=== PATIENT | female | born 1990 | race Caucasian/White ===

== ENCOUNTER 2016-07-20 16:52 | Emergency (ER) | payer OTHER ==
[2016-07-20] MEDS ORDERED: SODIUM CHLORIDE 0.9% 1,000 ML IV STA (17:00)
[2016-07-20] MEDS ORDERED: KETOROLAC 30 MG/ML 1 ML VIAL IVP STA (17:16)
[2016-07-20 17:18] LABS: Basophils # (A) 0.1 k/uL (0-0.2); Basophils % (A) 1 %; CH 30.7; CHCM 33.4; Eosinophils # (A) 0.3 k/uL (0-0.7); Eosinophils % (A) 4 %; HCT 43.3 % (34.0-46.0); HDW 2.24; Luc # (Auto) 0.13; Luc % (Auto) 2; Lymphocytes # (A) 2.3 k/uL (1.0-4.8); Lymphocytes % (A) 30 %; MCH 29.8 pg (25.0-35.0); MCHC 32.3 g/dL (31.0-37.0); MCV 92.2 fL (80.0-100.0); Mean Platelet Volume 8.2; Monocytes # (A) 0.4 k/uL (0-1.0); Monocytes % (A) 5 %; Neutrophils # (A) 4.5 k/uL (1.3-7.7); Neutrophils % (A) 59 %; RBC 4.69 m/uL (3.80-5.40); RDW 12.8 % (11.5-15.5); WBC 7.7 k/uL (3.8-10.6); WBC (Perox) 7.64
[2016-07-20 17:19] LABS: Appearance,Urine Clear (Clear); Bilirubin,Urine Negative (Negative); Glucose,Urine (UA) Negative (Negative); Ketones,Urine Negative (Negative); Leukocyte Esterase,Urine Negative (Negative); Nitrite,Urine Negative (Negative); PH, Urine 6.5 (5.0-8.0); Protein,Urine Negative (Negative); Specific Gravity,Urine 1.001 (1.001-1.035); UA Billing (MACRO vs. MICRO) CHEM; Urobilinogen,Urine <2.0 mg/dL (<2.0)
[2016-07-20 17:36] LABS: ALT 26 U/L (9-52); AST 16 U/L (14-36); Alkaline Phosphatase 84 U/L (38-126); Amylase 54 U/L (30-110); Anion Gap 12 mmol/L; Blood Urea Nitrogen 8 mg/dL (7-17); Calcium 9.6 mg/dL (8.4-10.2); Carbon Dioxide 29 mmol/L (22-30); Chloride 101 mmol/L (98-107); Glucose 98 mg/dL (74-99); Non-African American GFR(MDRD) >60 (>60 ml/min/1.73 sqM); Sodium 142 mmol/L (137-145); Total Bilirubin 0.3 mg/dL (0.2-1.3); Total Protein 7.2 g/dL (6.3-8.2)
--- NOTE | 2016-07-20 17:44 | ED ---
Abdominal Pain HPI - General Chief Complaint: Abdominal Pain Stated Complaint: Lower Abd/Back Pain Time Seen by Provider: 07/20/16 16:59 Source: patient, RN notes reviewed Mode of arrival: ambulatory Limitations: no limitations - History of Present Illness Initial Comments: 26-year-old female presents emergency Department chief complaint left flank pain. Patient states that started last night worse today. Patient states that she has a history of kidney stones in [place] (. She states it feels like an ovarian cysts in which she's had in the past. Denies any vaginal bleeding or vaginal discharge. Patient states she's had a prior appendectomy, section and tubal ligation. Patient states she did have one episode of vomiting. Denies any nausea at this time. Patient denies any cuts patient diarrhea. Patient denies fever, chills, dysuria, hematuria. She states that movement makes his symptoms feel worse. - Related Data Home Medications Medication Instructions Recorded Confirmed Hydrocodone/Acetaminophen [[place] 1 tab PO TID 07/20/16 07/20/16 5-325] Allergies Allergy/AdvReac Type Severity Reaction Status Date / Time aspirin Allergy Anaphylaxis Verified 07/20/16 17:28 Penicillins Allergy Anaphylaxis Verified 07/20/16 17:28 Review of Systems ROS Statement: Those systems with pertinent positive or pertinent negative responses have been documented in the HPI. ROS Other: All systems not noted in ROS Statement are negative. Past Medical History Past Medical History: Asthma, Thyroid Disorder Additional Past Medical History / Comment(s): back pain; Ovarian Cyst; Endometriosis History of Any Multi-Drug Resistant Organisms: None Reported Past Surgical History: Appendectomy, Section, Tubal Ligation Additional Past Surgical History / Comment(s): thyroid Past Anesthesia/Blood Transfusion Reactions: Family History of Problems w/ Anesthesia, Motion Sickness Additional Past Anesthesia/Blood Transfusion Reaction / Comment(s): mother hx of ponv, and agitation with anesthesia Past Psychological History: Depression Smoking Status: Current every day smoker Past Alcohol Use History: None Reported Past Drug Use History: None Reported - Past Family History Mother Family Medical History: No Reported History General Exam Limitations: no limitations General appearance: alert, in no apparent distress Head exam: Present: atraumatic, normocephalic, normal inspection Respiratory exam: Present: normal lung sounds bilaterally. Absent: respiratory distress, wheezes, rales, rhonchi, stridor Cardiovascular Exam: Present: regular rate, normal rhythm, normal heart sounds. Absent: systolic murmur, diastolic murmur, rubs, gallop, clicks GI/Abdominal exam: Present: soft, tenderness (Mild amount of lower quadrant tenderness), normal bowel sounds. Absent: distended, guarding, rebound, rigid Back exam: Absent: CVA tenderness (R), CVA tenderness (L) Neurological exam: Present: alert, oriented X3, CN II-XII intact Skin exam: Present: warm, dry, intact, normal color. Absent: rash Course Vital Signs 07/20/16 16:54 Temperature 98.0 F Pulse Rate 92 Respiratory 18 Rate Blood Pressure 127/79 O2 Sat by Pulse 100 Oximetry Medical Decision Making - Medical Decision Making 26-year-old female presented for left flank pain.There is no acute abnormality on CT. Discuss maybe there is a small ovarian cyst or related to bowel spasms. Patient will be discharged at this time. Patient agrees this plan. - Lab Data Result diagrams: 07/20/16 17:05 07/20/16 17:05 Lab Results 07/20/16 07/20/16 07/20/16 Range/Units 17:05 17:05 17:05 WBC 7.7 (3.8-10.6) k/uL RBC 4.69 (3.80-5.40) m/uL Hgb 14.0 (11.4-16.0) gm/dL Hct 43.3 (34.0-46.0) % MCV 92.2 (80.0-100.0) fL MCH 29.8 (25.0-35.0) pg MCHC 32.3 (31.0-37.0) g/dL RDW 12.8 (11.5-15.5) % Plt Count 225 (150-450) k/uL Neutrophils % 59 % Lymphocytes % 30 % Monocytes % 5 % Eosinophils % 4 % Basophils % 1 % Neutrophils # 4.5 (1.3-7.7) k/uL Lymphocytes # 2.3 (1.0-4.8) k/uL Monocytes # 0.4 (0-1.0) k/uL Eosinophils # 0.3 (0-0.7) k/uL Basophils # 0.1 (0-0.2) k/uL Sodium 142 (137-145) mmol/L Potassium 4.0 (3.5-5.1) mmol/L Chloride 101 (98-107) mmol/L Carbon Dioxide 29 (22-30) mmol/L Anion Gap 12 mmol/L BUN 8 (7-17) mg/dL Creatinine 0.85 (0.52-1.04) mg/dL Est GFR (MDRD) Af Amer >60 (>60 ml/min/1.73 sqM) Est GFR (MDRD) Non-Af >60 (>60 ml/min/1.73 sqM) Glucose 98 (74-99) mg/dL Calcium 9.6 (8.4-10.2) mg/dL Total Bilirubin 0.3 (0.2-1.3) mg/dL AST 16 (14-36) U/L ALT 26 (9-52) U/L Alkaline Phosphatase 84 (38-126) U/L Total Protein 7.2 (6.3-8.2) g/dL Albumin 4.5 (3.5-5.0) g/dL Amylase 54 (30-110) U/L Lipase 45 (23-300) U/L Urine Color Urine Appearance (Clear) Urine pH (5.0-8.0) Ur Specific [place] (1.001-1.035) Urine Protein (Negative) Urine Glucose (UA) (Negative) Urine Ketones (Negative) Urine Blood (Negative) Urine Nitrate (Negative) Urine Bilirubin (Negative) Urine Urobilinogen (<2.0) mg/dL Ur Leukocyte Esterase (Negative) Urine HCG, Qual Not Detected (Not Detectd) 07/20/16 Range/Units 17:05 WBC (3.8-10.6) k/uL RBC (3.80-5.40) m/uL Hgb (11.4-16.0) gm/dL Hct (34.0-46.0) % MCV (80.0-100.0) fL MCH (25.0-35.0) pg MCHC (31.0-37.0) g/dL RDW (11.5-15.5) % Plt Count (150-450) k/uL Neutrophils % % Lymphocytes % % Monocytes % % Eosinophils % % Basophils % % Neutrophils # (1.3-7.7) k/uL Lymphocytes # (1.0-4.8) k/uL Monocytes # (0-1.0) k/uL Eosinophils # (0-0.7) k/uL Basophils # (0-0.2) k/uL Sodium (137-145) mmol/L Potassium (3.5-5.1) mmol/L Chloride (98-107) mmol/L Carbon Dioxide (22-30) mmol/L Anion Gap mmol/L BUN (7-17) mg/dL Creatinine (0.52-1.04) mg/dL Est GFR (MDRD) Af Amer (>60 ml/min/1.73 sqM) Est GFR (MDRD) Non-Af (>60 ml/min/1.73 sqM) Glucose (74-99) mg/dL Calcium (8.4-10.2) mg/dL Total Bilirubin (0.2-1.3) mg/dL AST (14-36) U/L ALT (9-52) U/L Alkaline Phosphatase (38-126) U/L Total Protein (6.3-8.2) g/dL Albumin (3.5-5.0) g/dL Amylase (30-110) U/L Lipase (23-300) U/L Urine Color Colorless Urine Appearance Clear (Clear) Urine pH 6.5 (5.0-8.0) Ur Specific [place] 1.001 (1.001-1.035) Urine Protein Negative (Negative) Urine Glucose (UA) Negative (Negative) Urine Ketones Negative (Negative) Urine Blood Negative (Negative) Urine Nitrate Negative (Negative) Urine Bilirubin Negative (Negative) Urine Urobilinogen <2.0 (<2.0) mg/dL Ur Leukocyte Esterase Negative (Negative) Urine HCG, Qual (Not Detectd) Disposition Clinical Impression: Abdominal pain Disposition: HOME SELF-CARE Condition: Stable Instructions: Abdominal Pain (ED) Additional Instructions: Please return to the ER if worse or any other concerns Time of Disposition: 18:45
--- NOTE | 2016-07-20 17:55 | XR ---
EXAMINATION TYPE: XR KUB DATE OF EXAM: 07/20/2016 5:49 PM COMPARISON: October 05, 2011 HISTORY: Left lower quadrant pain TECHNIQUE: 2 views FINDINGS: There is a 2 mm calcification centrally within the left pelvis. There is no bowel obstruction, although excessive colonic stool is noted. No pneumoperitoneum or pneu matosis. No evident mass. The lung bases and pleural spaces are negative. IMPRESSION: No definite acute process. However, 2 mm left pelvic calcification noted.
--- NOTE | 2016-07-20 18:34 | CT ---
EXAMINATION TYPE: CT abdomen pelvis wo con DATE OF EXAM: 07/20/2016 6:21 PM COMPARISON: NONE HISTORY: Left Lower Quadrant and Left flank pain CT DLP: 258.9 mGycm Automated exposure control for dose reduction was used. TECHNIQUE: Helical acquisition of images was performed from the lung bases through the pelvis. FINDINGS: LUNG BASES: No significant abnormality is appreciated. LIVER/GB: No significant abnormality is appreciated. PANCREAS: No significant abnormality is seen. SPLEEN: There are no acute findings, but the spleen is minimally enlarged in its volume, measuring 59 0 cc splenic index. There are a few scattered tiny splenic calcifications, consistent with healed gra nulomatous process. ADRENALS: No significant abnormality is seen. KIDNEYS: No significant abnormality is seen. RETROPERITONEAL ADENOPATHY: None visualized REPRODUCTIVE ORGANS: No significant abnormality is seen URINARY BLADDER: No significant abnormality is seen. PELVIC ADENOPATHY: None visualized. OSSEOUS STRUCTURES: No significant abnormality is seen. BOWEL: No significant abnormality is seen. OTHER: Noncontrast CT limits sensitivity for focal visceral lesions and intravascular pathology. IMPRESSION: 1. NO DEFINITE ACUTE PROCESS. 2. HOWEVER, THERE IS MINIMAL SPLENOMEGALY NOTED - A NONSPECIFIC FINDING WHICH CAN CORRELATE WITH A CL INICAL DIAGNOSIS OF MONONUCLEOSIS.
[2016-07-20] MEDS ORDERED: MORPHINE SULFATE 4 MG/ML SYRINGE IVP STA (18:45)
[2016-07-20] MEDS ORDERED: ONDANSETRON 4 MG/2 ML VIAL IVP STA (18:45)
[2016-07-20] MEDS ORDERED: MORPHINE SULFATE 2 MG/ML SYRINGE IVP ONE (18:53)
[2016-07-20 19:02] VITALS: BP 115/57; PULSE 67; RESP 18; TEMP 97.8
== END 2016-07-20 19:02 | disposition home or self-care (01) ==
LOC: EC 16:52
DX: R10.9 Unspecified abdominal pain (principal); F17.200 Nicotine dependence, unspecified, uncomplicated; Z88.0 Allergy status to penicillin; Z88.6 Allergy status to analgesic agent; Z87.442 Personal history of urinary calculi
CPT/HCPCS: 36415; 80053; 82150; 83690; 85025; 81003; 81025; 74000; 74176; 99284; 96374; 96375 ×2; 96376; 96361; J2405; J1885; J2270

== ENCOUNTER 2016-10-15 22:37 | Emergency (ER) | payer OTHER ==
[2016-10-15 22:56] VITALS: RESP 16
[2016-10-16] MEDS ORDERED: IBUPROFEN 800 MG TAB PO STA (00:19)
[2016-10-16 01:13] LABS: Basophils # (A) 0.1 k/uL (0-0.2); Basophils % (A) 1 %; CHCM 33.6; Eosinophils # (A) 0.2 k/uL (0-0.7); Eosinophils % (A) 3 %; HCT 40.7 % (34.0-46.0); HGB 13.4 gm/dL (11.4-16.0); Luc # (Auto) 0.14; Luc % (Auto) 2; Lymphocytes # (A) 2.3 k/uL (1.0-4.8); Lymphocytes % (A) 32 %; MCH 30.5 pg (25.0-35.0); MCV 92.6 fL (80.0-100.0); Monocytes # (A) 0.4 k/uL (0-1.0); Monocytes % (A) 6 %; Neutrophils # (A) 4.1 k/uL (1.3-7.7); Neutrophils % (A) 56 %; RBC 4.39 m/uL (3.80-5.40); RDW 13.2 % (11.5-15.5); WBC 7.3 k/uL (3.8-10.6); WBC (Perox) 7.49
[2016-10-16 01:22] LABS: INR 1.1 (<1.1); Partial Thromboplastin Time 25.9 sec (22.0-30.0); Prothrombin Time 10.8 sec (9.0-12.0)
[2016-10-16 01:26] LABS: ALT 26 U/L (9-52); AST 16 U/L (14-36); Alkaline Phosphatase 60 U/L (38-126); Anion Gap 9 mmol/L; Blood Urea Nitrogen 13 mg/dL (7-17); Calcium 9.5 mg/dL (8.4-10.2); Carbon Dioxide 25 mmol/L (22-30); Chloride 107 mmol/L (98-107); Glucose 83 mg/dL (74-99); Non-African American GFR(MDRD) >60 (>60 ml/min/1.73 sqM); Potassium 3.9 mmol/L (3.5-5.1); Sodium 141 mmol/L (137-145); Total Bilirubin 0.3 mg/dL (0.2-1.3); Total Protein 6.5 g/dL (6.3-8.2)
[2016-10-16 01:36] LABS: Appearance,Urine Cloudy (Clear); Bilirubin,Urine Negative (Negative); Glucose,Urine (UA) Negative (Negative); Ketones,Urine Negative (Negative); Leukocyte Esterase,Urine Negative (Negative); Mucus,Urine Many /hpf; Nitrite,Urine Negative (Negative); Particle Count 14927; Protein,Urine 1+ (Negative); Specific Gravity,Urine 1.026 (1.001-1.035); Squamous Epithelial Cell,Urine 4 /hpf (0-4); UA Billing (MACRO vs. MICRO) MICRO
--- NOTE | 2016-10-16 01:42 | ED ---
General Adult HPI - General Chief complaint: Extremity Problem,Nontraumatic Stated complaint: Shoulder pain Time Seen by Provider: 10/15/16 23:55 Source: patient, RN notes reviewed Mode of arrival: ambulatory Limitations: no limitations - History of Present Illness Initial comments: Patient is a 26-year-old female presents emergency room for evaluation chest pain. Patient states that 6 weeks ago she began developing midsternal pain that radiates to her neck and posterior left shoulder. Patient states that she went to [facility]. Patient states they did an EKG and told her that she was having chest wall pain. Patient states over the course of 6 weeks pain has not improved. Patient states she takes Ridott as needed for chronic back pain and the Ridott has not been helping her chest pain. Patient states pain is worse with movement. 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 Patient states that the pain got worse after lifting her children and doing her work. Patient denies numbness or tingling going down her extremities. Patient states the pain is worse when she presses over her chest. Patient denies shortness of breath. Patient denies headache or dizziness. Patient denies cough. Patient denies fevers or chills. Patient denies abdominal pain. Patient denies nausea or vomiting. - Related Data Home Medications Medication Instructions Recorded Confirmed Hydrocodone/Acetaminophen [Ridott 1 tab PO TID 07/20/16 07/20/16 5-325] Previous Rx's Medication Instructions Recorded Orphenadrine [Norflex] 100 mg PO Q12H PRN #12 tablet.er 10/16/16 Allergies Allergy/AdvReac Type Severity Reaction Status Date / Time aspirin Allergy Anaphylaxis Verified 10/15/16 22:56 Penicillins Allergy Anaphylaxis Verified 10/15/16 22:56 Review of Systems ROS Statement: Those systems with pertinent positive or pertinent negative responses have been documented in the HPI. ROS Other: All systems not noted in ROS Statement are negative. Past Medical History Past Medical History: Asthma, Thyroid Disorder Additional Past Medical History / Comment(s): back pain; Ovarian Cyst; Endometriosis History of Any Multi-Drug Resistant Organisms: None Reported Past Surgical History: Appendectomy, Section, Tubal Ligation Additional Past Surgical History / Comment(s): thyroid Past Anesthesia/Blood Transfusion Reactions: Family History of Problems w/ Anesthesia, Motion Sickness Additional Past Anesthesia/Blood Transfusion Reaction / Comment(s): mother hx of ponv, and agitation with anesthesia Past Psychological History: Depression Smoking Status: Current every day smoker Past Alcohol Use History: Occasional Past Drug Use History: None Reported - Past Family History Mother Family Medical History: No Reported History General Exam - General Exam Comments Initial Comments: Sitting in exam room, no acute distress. Limitations: no limitations General appearance: alert, in no apparent distress Head exam: Present: atraumatic, normocephalic, normal inspection Eye exam: Present: normal appearance ENT exam: Present: normal exam Neck exam: Present: normal inspection Respiratory exam: Present: normal lung sounds bilaterally, chest wall tenderness (Pain on palpating over midsternal area and left anterior chest wall) . Absent: respiratory distress Cardiovascular Exam: Present: regular rate, normal rhythm, normal heart sounds Extremities exam: Present: normal inspection Left Shoulder Exam: Present: normal inspection, tenderness (Pain on palpating over posterior shoulder joint/scapula). Absent: full ROM (limited extension secondary to pain) Neuro motor exam: Present: wrist extension intact, thumb opposition intact, thumb IP flexion intact, thumb adduction intact, fingers 2-5 abduction intact Vascular: Present: normal capillary refill (Capillary refill less than 2 seconds ), radial pulse (2+), ulnar pulse (2+) Back exam: Present: normal inspection Neurological exam: Present: alert, oriented X3, CN II-XII intact, normal gait Psychiatric exam: Present: normal affect, normal mood Skin exam: Present: warm, dry, intact, normal color. Absent: rash Course Vital Signs 10/15/16 22:53 Temperature 98.4 F Pulse Rate 90 Respiratory 16 Rate Blood Pressure 131/78 O2 Sat by Pulse 98 Oximetry EKG Findings - EKG Comments: EKG Findings:: Sinus bradycardia, ventricular rate 59 bpm, WA interval 156 ms, QRS duration 84 ms, QT/QTC 398/394 ms Medical Decision Making - Medical Decision Making Patient is a 26-year-old female presents emergency room for evaluation of chest wall pain. EKG shows no concerning findings. Lab work including cardiac enzymes show no acute findings. Chest x-ray shows no signs for pneumonia, and pleural effusions or pneumothorax. Patient's symptoms reproducible on palpation. Patient's symptoms most likely related to costochondritis. Explained to patient to refrain from heavy lifting or strenuous activity for the next 7-10 days. Patient has Ridott as needed at home for pain. Will send patient home with Norflex and advised to follow-up with her primary care provider. Patient states she understands everything that was discussed with her. Return parameters discussed. Case discussed with Dr. Nieves. - Lab Data Result diagrams: 10/16/16 00:50 10/16/16 00:50 Lab Results 10/16/16 10/16/16 10/16/16 Range/Units 00:50 00:50 00:50 WBC 7.3 (3.8-10.6) k/uL RBC 4.39 (3.80-5.40) m/uL Hgb 13.4 (11.4-16.0) gm/dL Hct 40.7 (34.0-46.0) % MCV 92.6 (80.0-100.0) fL MCH 30.5 (25.0-35.0) pg MCHC 33.0 (31.0-37.0) g/dL RDW 13.2 (11.5-15.5) % Plt Count 170 (150-450) k/uL Neutrophils % 56 % Lymphocytes % 32 % Monocytes % 6 % Eosinophils % 3 % Basophils % 1 % Neutrophils # 4.1 (1.3-7.7) k/uL Lymphocytes # 2.3 (1.0-4.8) k/uL Monocytes # 0.4 (0-1.0) k/uL Eosinophils # 0.2 (0-0.7) k/uL Basophils # 0.1 (0-0.2) k/uL PT (9.0-12.0) sec INR (<1.1) APTT (22.0-30.0) sec D-Dimer (<0.60) mg/L FEU Sodium 141 (137-145) mmol/L Potassium 3.9 (3.5-5.1) mmol/L Chloride 107 (98-107) mmol/L Carbon Dioxide 25 (22-30) mmol/L Anion Gap 9 mmol/L BUN 13 (7-17) mg/dL Creatinine 0.80 (0.52-1.04) mg/dL Est GFR (MDRD) Af Amer >60 (>60 ml/min/1.73 sqM) Est GFR (MDRD) Non-Af >60 (>60 ml/min/1.73 sqM) Glucose 83 (74-99) mg/dL Calcium 9.5 (8.4-10.2) mg/dL Magnesium 2.0 (1.6-2.3) mg/dL Total Bilirubin 0.3 (0.2-1.3) mg/dL AST 16 (14-36) U/L ALT 26 (9-52) U/L Alkaline Phosphatase 60 (38-126) U/L Total Creatine Kinase 83 (30-135) U/L CK-MB (CK-2) 0.2 (0.0-2.4) ng/mL CK-MB (CK-2) Rel Index 0.2 Troponin I <0.012 (0.000-0.034) ng/mL Total Protein 6.5 (6.3-8.2) g/dL Albumin 4.0 (3.5-5.0) g/dL Urine Color Urine Appearance (Clear) Urine pH (5.0-8.0) Ur Specific [place] (1.001-1.035) Urine Protein (Negative) Urine Glucose (UA) (Negative) Urine Ketones (Negative) Urine Blood (Negative) Urine Nitrite (Negative) Urine Bilirubin (Negative) Urine Urobilinogen (<2.0) mg/dL Ur Leukocyte Esterase (Negative) Ur Squamous Epith Cells (0-4) /hpf Urine Mucus (None) /hpf Urine HCG, Qual (Not Detectd) 10/16/16 10/16/16 10/16/16 Range/Units 00:50 01:05 01:05 WBC (3.8-10.6) k/uL RBC (3.80-5.40) m/uL Hgb (11.4-16.0) gm/dL Hct (34.0-46.0) % MCV (80.0-100.0) fL MCH (25.0-35.0) pg MCHC (31.0-37.0) g/dL RDW (11.5-15.5) % Plt Count (150-450) k/uL Neutrophils % % Lymphocytes % % Monocytes % % Eosinophils % % Basophils % % Neutrophils # (1.3-7.7) k/uL Lymphocytes # (1.0-4.8) k/uL Monocytes # (0-1.0) k/uL Eosinophils # (0-0.7) k/uL Basophils # (0-0.2) k/uL PT 10.8 (9.0-12.0) sec INR 1.1 (<1.1) APTT 25.9 (22.0-30.0) sec D-Dimer <0.17 (<0.60) mg/L FEU Sodium (137-145) mmol/L Potassium (3.5-5.1) mmol/L Chloride (98-107) mmol/L Carbon Dioxide (22-30) mmol/L Anion Gap mmol/L BUN (7-17) mg/dL Creatinine (0.52-1.04) mg/dL Est GFR (MDRD) Af Amer (>60 ml/min/1.73 sqM) Est GFR (MDRD) Non-Af (>60 ml/min/1.73 sqM) Glucose (74-99) mg/dL Calcium (8.4-10.2) mg/dL Magnesium (1.6-2.3) mg/dL Total Bilirubin (0.2-1.3) mg/dL AST (14-36) U/L ALT (9-52) U/L Alkaline Phosphatase (38-126) U/L Total Creatine Kinase (30-135) U/L CK-MB (CK-2) (0.0-2.4) ng/mL CK-MB (CK-2) Rel Index Troponin I (0.000-0.034) ng/mL Total Protein (6.3-8.2) g/dL Albumin (3.5-5.0) g/dL Urine Color Yellow Urine Appearance Cloudy H (Clear) Urine pH 6.0 (5.0-8.0) Ur Specific [place] 1.026 (1.001-1.035) Urine Protein 1+ H (Negative) Urine Glucose (UA) Negative (Negative) Urine Ketones Negative (Negative) Urine Blood Negative (Negative) Urine Nitrite Negative (Negative) Urine Bilirubin Negative (Negative) Urine Urobilinogen 2.0 (<2.0) mg/dL Ur Leukocyte Esterase Negative (Negative) Ur Squamous Epith Cells 4 (0-4) /hpf Urine Mucus Many H (None) /hpf Urine HCG, Qual Not Detected (Not Detectd) - Radiology Data Radiology results: report reviewed, image reviewed Disposition Clinical Impression: Costochondritis Disposition: HOME SELF-CARE Condition: Good Instructions: Costochondritis (ED) Additional Instructions: Take ibuprofen as needed for pain. Take at home pain medications as needed for severe pain. Refrain from heavy lifting or strenuous physical activity for the next 7-10 days. Please follow-up with primary care provider in 24-48 hours for reevaluation. If any new symptom arises or symptoms worsen, return to ER as soon as possible. Prescriptions: Orphenadrine [Norflex] 100 mg PO Q12H PRN #12 tablet.er PRN Reason: Pain Referrals: Teresa Abbott MD [Primary Care Provider] - 1-2 days Time of Disposition: 02:41
--- NOTE | 2016-10-16 02:02 | XR ---
EXAM: XR Chest, 2 Views. CLINICAL HISTORY: chest/shoulder pain TECHNIQUE: Frontal and lateral views of the chest. COMPARISON: No relevant prior studies available. FINDINGS: Lungs: Unremarkable. No consolidation. Pleural space: Unremarkable. No pneumothorax. Heart: Unremarkable. No cardiomegaly. Mediastinum: Unremarkable. Bones/joints: Unremarkable. IMPRESSION: Normal chest x-rays.
[2016-10-16 02:22] LABS: Creatine Kinase 83 U/L (30-135)
[2016-10-16 02:35] LABS: Creatine Kinase MB 0.2 ng/mL (0.0-2.4); Troponin I <0.012 ng/mL (0.000-0.034)
[2016-10-16 03:16] VITALS: BP 114/58; PULSE 61; TEMP 97.8
== END 2016-10-16 03:00 | disposition home or self-care (01) ==
LOC: EC 22:37
DX: M94.0 Chondrocostal junction syndrome [Tietze] (principal); F17.200 Nicotine dependence, unspecified, uncomplicated; Z88.0 Allergy status to penicillin; Z88.6 Allergy status to analgesic agent; Z79.891 Long term (current) use of opiate analgesic
CPT/HCPCS: 36415; 71020; 80053; 81001; 81025; 82550; 82553; 83735; 84484; 85025; 85379; 85610; 85730; 93005; 99284

== ENCOUNTER 2017-08-14 11:07 | Emergency (ER) | payer OTHER ==
[2017-08-14] MEDS ORDERED: predniSONE 50 MG TAB PO STA (12:47)
[2017-08-14] MEDS ORDERED: IPRATROPIUM-ALBUTEROL 3 ML NEB INHALATION STA (12:50)
--- NOTE | 2017-08-14 12:50 | ED ---
General Adult HPI - General Chief complaint: Upper Respiratory Infection Stated complaint: Sob/chest pain Time Seen by Provider: 08/14/17 12:38 Source: patient, RN notes reviewed Mode of arrival: ambulatory Limitations: no limitations - History of Present Illness Initial comments: 27-year-old female history of asthma presents for evaluation of cough and left- sided chest pain. Patient was started on amoxicillin proximally one month ago for her cough. She was also given a dose of steroids. She completed this approximately 2 and half weeks ago. She has had persistent cough and left- sided chest pain. pain is sharp and worse with deep inspiration. Patient has had subjective fever and chills. She also complains of mild sore throat which began yesterday. Patient states her cough is nonproductive. Denies rhinorrhea. Denies abdominal pain or nausea vomiting. - Related Data Home Medications Medication Instructions Recorded Confirmed Albuterol Inhaler [Ventolin Hfa 2 puff INHALATION RT-Q6H PRN 06/15/17 08/14/17 Inhaler] Previous Rx's Medication Instructions Recorded guaiFENesin-Coden 100-10MG/5ML 10 ml PO Q6HR PRN #120 ml 08/14/17 [Robitussin AC] predniSONE 50 mg PO DAILY #5 tab 08/14/17 Allergies Allergy/AdvReac Type Severity Reaction Status Date / Time aspirin Allergy Anaphylaxis Verified 08/14/17 12:53 Penicillins Allergy Anaphylaxis Verified 08/14/17 12:53 Review of Systems ROS Statement: Those systems with pertinent positive or pertinent negative responses have been documented in the HPI. ROS Other: All systems not noted in ROS Statement are negative. Past Medical History Past Medical History: Asthma, Thyroid Disorder Additional Past Medical History / Comment(s): back pain; Ovarian Cyst; Endometriosis History of Any Multi-Drug Resistant Organisms: None Reported Past Surgical History: Appendectomy, Section, Tubal Ligation Additional Past Surgical History / Comment(s): thyroid Past Anesthesia/Blood Transfusion Reactions: Family History of Problems w/ Anesthesia, Motion Sickness Additional Past Anesthesia/Blood Transfusion Reaction / Comment(s): mother hx of ponv, and agitation with anesthesia Past Psychological History: Depression Smoking Status: Current every day smoker Past Alcohol Use History: Occasional Past Drug Use History: None Reported - Past Family History Mother Family Medical History: No Reported History General Exam Limitations: no limitations General appearance: alert, in no apparent distress Head exam: Present: atraumatic, normocephalic Eye exam: Present: normal appearance, PERRL, EOMI ENT exam: Absent: normal oropharynx (mild pharyngeal erythema) Neck exam: Present: normal inspection. Absent: tenderness, meningismus Respiratory exam: Present: rhonchi (rhonchi and crackles left lung base). Absent: respiratory distress, wheezes Cardiovascular Exam: Present: regular rate, normal rhythm GI/Abdominal exam: Present: soft. Absent: distended, tenderness Extremities exam: Present: normal inspection, normal capillary refill. Absent: pedal edema, calf tenderness Neurological exam: Present: alert, oriented X3, CN II-XII intact. Absent: motor sensory deficit Psychiatric exam: Present: normal affect, normal mood Skin exam: Present: warm, dry, intact Course Vital Signs 08/14/17 08/14/17 08/14/17 11:23 12:45 13:05 Temperature 98.6 F Pulse Rate 81 80 Respiratory 18 20 Rate Blood Pressure 117/71 O2 Sat by Pulse 100 Oximetry 08/14/17 13:13 Temperature Pulse Rate 84 Respiratory Rate Blood Pressure O2 Sat by Pulse Oximetry Medical Decision Making - Medical Decision Making 27-year-old female presenting with 4 weeks of cough. Patient does have history of asthma and is a current smoker.lungs are clear with good air entry, no respiratory distress. Patient does have some crackles at the left lung base. Cough is bronchospastic. She is instructed to start using her albuterol every 6 hours. She will be prescribed a short course of steroids. She will be prescribed Robitussin-AC for symptomatically relief. patient denies lower leg swelling or tenderness. She is not on control. No recent travel. PERC 0 Disposition Clinical Impression: Asthmatic bronchitis Disposition: HOME SELF-CARE Condition: Good Instructions: Upper Respiratory Infection (ED) Prescriptions: guaiFENesin-Coden 100-10MG/5ML [Robitussin AC] 10 ml PO Q6HR PRN #120 ml PRN Reason: Cough predniSONE 50 mg PO DAILY #5 tab Referrals: Teresa Abbott MD [Primary Care Provider] - 1-2 days Time of Disposition: 13:37
--- NOTE | 2017-08-14 13:11 | XR ---
EXAMINATION TYPE: XR chest 2V DATE OF EXAM: 08/14/2017 COMPARISON: 10/16/2016 TECHNIQUE: PA and lateral views submitted. HISTORY: Pain FINDINGS: The lungs are clear and there is no pneumothorax, pleural effusion, or focal pneumonia. IMPRESSION: 1. No acute process.
[2017-08-14 13:58] VITALS: BP 128/80; PULSE 81; RESP 16; TEMP 98.7
== END 2017-08-14 13:57 | disposition home or self-care (01) ==
LOC: EC 11:07
DX: J45.909 Unspecified asthma, uncomplicated (principal); F17.200 Nicotine dependence, unspecified, uncomplicated; Z88.0 Allergy status to penicillin; Z88.6 Allergy status to analgesic agent
CPT/HCPCS: 99283; 94640; 71046; J7512

== ENCOUNTER → 2018-02-01 | Outpatient (CLI) | payer BC, OTHER ==
--- NOTE | 2018-02-01 12:01 | EST ---
EXERCISE STRESS AGE: 28 SEX: F HT: 5'5" WT: 135 PROTOCOL: Stress Test STAGE: III DURATION OF EXERCISE: 9:53 HEART RATE REST: 60 BLOOD PRESSURE REST: 107/70 MAXIMUM HEART RATE ACHIEVED: 166 MAXIMUM BLOOD PRESSURE: 142/75 85% MPHR: 162 100% MPHR: 191 METS: 11.5 INDICATIONS: Dizziness. CLINICAL INFORMATION: Baseline EKG shows sinus rhythm, normal axis, normal intervals. Patient exercised on Florian protocol for a total of 9 minutes and 53 seconds achieving 11 METS, 86% of predicted maximal heart rate without chest pain or diagnostic ST-segment depression. CONCLUSION: 1. Excellent exercise tolerance. 2. Negative stress test by EKG criteria. MMODL / IJN: [id number] /
== END | disposition home or self-care (01) ==
LOC: RADNMMAIN 10:36
PROVIDERS: ATTEND Family Medicine
DX: R42 Dizziness and giddiness (principal)
CPT/HCPCS: 93017

== ENCOUNTER 2018-03-06 17:21 | Emergency (ER) | payer BC, OTHER ==
[2018-03-06] MEDS ORDERED: METOCLOPRAMIDE 5 MG/ML 2 ML VIAL IVP STA (18:24)
[2018-03-06] MEDS ORDERED: SODIUM CHLORIDE 0.9% 500 ML IV STA (18:24)
[2018-03-06] MEDS ORDERED: MORPHINE SULFATE 2 MG/ML SYRINGE IVP STA (18:24)
--- NOTE | 2018-03-06 18:26 | ED ---
General Adult HPI - General Chief complaint: Abdominal Pain Stated complaint: abdominal pain Source: patient Mode of arrival: ambulatory Limitations: no limitations - History of Present Illness Initial comments: Dictation was produced using SLID dictation software. please excuse any grammatical, word or spelling errors. Chief Complaint: 28-year-old female with past medical history of thyroid disease presents with epigastric and right upper quadrant abdominal pain 3 days. History of Present Illness: Patient is a 28-year-old female presents with postprandial epigastric and right upper quadrant abdominal pain. Denies any constitutional symptoms. Patient has any symptoms like this in the past. She states that her symptoms started immediately after eating. Denies any bloody or bilious vomiting. Her emesis is described as vertiginous. Patient is unsure if she is . Denies any diarrhea symptoms. No urinary symptoms. The ROS documented in this emergency department record has been reviewed and confirmed by me. Those systems with pertinent positive or negative responses have been documented in the HPI. All other systems are other negative and/or noncontributory. - Related Data Home Medications Medication Instructions Recorded Confirmed Albuterol Inhaler [Ventolin Hfa 2 puff INHALATION RT-Q6H PRN 06/15/17 03/06/18 Inhaler] Previous Rx's Medication Instructions Recorded Famotidine [Pepcid] 40 mg PO BID #30 tab 03/06/18 Allergies Allergy/AdvReac Type Severity Reaction Status Date / Time aspirin Allergy Anaphylaxis Verified 03/06/18 17:45 Penicillins Allergy Anaphylaxis Verified 03/06/18 17:45 Review of Systems ROS Statement: Those systems with pertinent positive or pertinent negative responses have been documented in the HPI. ROS Other: All systems not noted in ROS Statement are negative. Past Medical History Past Medical History: Asthma, Thyroid Disorder Additional Past Medical History / Comment(s): back pain; Ovarian Cyst; Endometriosis History of Any Multi-Drug Resistant Organisms: None Reported Past Surgical History: Appendectomy, Section, Tubal Ligation Additional Past Surgical History / Comment(s): thyroid Past Anesthesia/Blood Transfusion Reactions: Family History of Problems w/ Anesthesia, Motion Sickness Additional Past Anesthesia/Blood Transfusion Reaction / Comment(s): mother hx of ponv, and agitation with anesthesia Past Psychological History: Depression Smoking Status: Current every day smoker Past Alcohol Use History: Occasional Past Drug Use History: None Reported - Past Family History Mother Family Medical History: No Reported History General Exam - General Exam Comments Initial Comments: PHYSICAL EXAM: General Impression: Alert and oriented x3, not in acute distress HEENT: Normocephalic atraumatic, extra-ocular movements intact, pupils equal and reactive to light bilaterally, mucous membranes moist. Cardiovascular: Heart regular rate and rhythm, S1&S2 audible, no murmurs, rubs or gallops Chest: Lungs clear to auscultation bilaterally, no rhonchi, no wheeze, no rales Abdomen: Bowel sounds present, abdomen soft, non-distended, no organomegaly, positive Richmond sign Musculoskeletal: Pulses present and equal in all extremities, no peripheral edema Motor: Power 5/5 bilaterally, no focal deficits noted Neurological: CN II-XII grossly intact, no focal motor or sensory deficits noted Skin: Intact with no visualized rashes Psych: Normal affect and mood Limitations: no limitations Course Vital Signs 03/06/18 17:43 Temperature 98.3 F Pulse Rate 84 Respiratory 20 Rate Blood Pressure 109/77 O2 Sat by Pulse 99 Oximetry Medical Decision Making - Medical Decision Making ED course: 28-year-old female with right upper quadrant/epigastric pain that is postprandial. Vital signs upon arrival are within acceptable limits.Laboratory evaluation obtained. CBC is unremarkable. Metabolic panel shows no acute processes. There is mild bicarb elevation which would suggest non-gap acidosis. Urinalysis is negative. Urine is negative. Abdominal ultrasound was obtained showing no findings to suggest cholelithiasis. Rest of ultrasound abdomen shows no acute processes. There are strong clinical suspicion that patient's symptoms represent gastritis versus peptic ulcer disease per she is given GI cocktail with improvement of symptoms. Discussed with patient that she should follow-up with GI doctor for possible upper endoscopy. She is given prescription for Pepcid to go home with. Told to look out for lightheadedness, GI bleed or coffee-ground stools. She does have she should seek medical attention. Patient understandable agreeable to disposition. - Lab Data Result diagrams: 03/06/18 18:30 03/06/18 18:30 Lab Results 03/06/18 03/06/18 03/06/18 Range/Units 18:30 18:30 18:30 WBC 9.1 (3.8-10.6) k/uL RBC 4.81 (3.80-5.40) m/uL Hgb 14.3 (11.4-16.0) gm/dL Hct 44.6 (34.0-46.0) % MCV 92.8 (80.0-100.0) fL MCH 29.8 (25.0-35.0) pg MCHC 32.1 (31.0-37.0) g/dL RDW 12.8 (11.5-15.5) % Plt Count 238 (150-450) k/uL Neutrophils % 63 % Lymphocytes % 27 % Monocytes % 5 % Eosinophils % 3 % Basophils % 1 % Neutrophils # 5.8 (1.3-7.7) k/uL Lymphocytes # 2.5 (1.0-4.8) k/uL Monocytes # 0.4 (0-1.0) k/uL Eosinophils # 0.3 (0-0.7) k/uL Basophils # 0.1 (0-0.2) k/uL Sodium 142 (137-145) mmol/L Potassium 4.1 (3.5-5.1) mmol/L Chloride 104 (98-107) mmol/L Carbon Dioxide 33 H (22-30) mmol/L Anion Gap 5 mmol/L BUN 7 (7-17) mg/dL Creatinine 0.82 (0.52-1.04) mg/dL Est GFR (CKD-EPI)AfAm >90 (>60 ml/min/1.73 sqM) Est GFR (CKD-EPI)NonAf >90 (>60 ml/min/1.73 sqM) Glucose 85 (74-99) mg/dL Calcium 9.7 (8.4-10.2) mg/dL Total Bilirubin 0.4 (0.2-1.3) mg/dL AST 19 (14-36) U/L ALT 26 (9-52) U/L Alkaline Phosphatase 77 (38-126) U/L Total Protein 7.5 (6.3-8.2) g/dL Albumin 4.5 (3.5-5.0) g/dL Lipase 31 (23-300) U/L Urine Color Urine Appearance (Clear) Urine pH (5.0-8.0) Ur Specific Childs (1.001-1.035) Urine Protein (Negative) Urine Glucose (UA) (Negative) Urine Ketones (Negative) Urine Blood (Negative) Urine Nitrite (Negative) Urine Bilirubin (Negative) Urine Urobilinogen (<2.0) mg/dL Ur Leukocyte Esterase (Negative) Urine HCG, Qual Not Detected (Not Detectd) 03/06/18 Range/Units 18:30 WBC (3.8-10.6) k/uL RBC (3.80-5.40) m/uL Hgb (11.4-16.0) gm/dL Hct (34.0-46.0) % MCV (80.0-100.0) fL MCH (25.0-35.0) pg MCHC (31.0-37.0) g/dL RDW (11.5-15.5) % Plt Count (150-450) k/uL Neutrophils % % Lymphocytes % % Monocytes % % Eosinophils % % Basophils % % Neutrophils # (1.3-7.7) k/uL Lymphocytes # (1.0-4.8) k/uL Monocytes # (0-1.0) k/uL Eosinophils # (0-0.7) k/uL Basophils # (0-0.2) k/uL Sodium (137-145) mmol/L Potassium (3.5-5.1) mmol/L Chloride (98-107) mmol/L Carbon Dioxide (22-30) mmol/L Anion Gap mmol/L BUN (7-17) mg/dL Creatinine (0.52-1.04) mg/dL Est GFR (CKD-EPI)AfAm (>60 ml/min/1.73 sqM) Est GFR (CKD-EPI)NonAf (>60 ml/min/1.73 sqM) Glucose (74-99) mg/dL Calcium (8.4-10.2) mg/dL Total Bilirubin (0.2-1.3) mg/dL AST (14-36) U/L ALT (9-52) U/L Alkaline Phosphatase (38-126) U/L Total Protein (6.3-8.2) g/dL Albumin (3.5-5.0) g/dL Lipase (23-300) U/L Urine Color Yellow Urine Appearance Clear (Clear) Urine pH 7.5 (5.0-8.0) Ur Specific Childs 1.013 (1.001-1.035) Urine Protein Negative (Negative) Urine Glucose (UA) Negative (Negative) Urine Ketones Negative (Negative) Urine Blood Negative (Negative) Urine Nitrite Negative (Negative) Urine Bilirubin Negative (Negative) Urine Urobilinogen <2.0 (<2.0) mg/dL Ur Leukocyte Esterase Negative (Negative) Urine HCG, Qual (Not Detectd) Disposition Clinical Impression: Abdominal pain Disposition: HOME SELF-CARE Instructions: Abdominal Pain (ED) Prescriptions: Famotidine [Pepcid] 40 mg PO BID #30 tab Is patient prescribed a controlled substance at d/c from ED?: No Referrals: Vince Kay DO [Primary Care Provider] - 1-2 days Time of Disposition: 20:29
[2018-03-06 18:48] LABS: Basophils # (A) 0.1 k/uL (0-0.2); Basophils % (A) 1 %; Eosinophils # (A) 0.3 k/uL (0-0.7); Eosinophils % (A) 3 %; HCT 44.6 % (34.0-46.0); HGB 14.3 gm/dL (11.4-16.0); Lymphocytes # (A) 2.5 k/uL (1.0-4.8); Lymphocytes % (A) 27 %; MCH 29.8 pg (25.0-35.0); MCHC 32.1 g/dL (31.0-37.0); MCV 92.8 fL (80.0-100.0); Mean Platelet Volume 7.1; Monocytes # (A) 0.4 k/uL (0-1.0); Monocytes % (A) 5 %; Neutrophils # (A) 5.8 k/uL (1.3-7.7); Neutrophils % (A) 63 %; Platelet Count 238 k/uL (150-450); RBC 4.81 m/uL (3.80-5.40); RDW 12.8 % (11.5-15.5); WBC 9.1 k/uL (3.8-10.6)
[2018-03-06 18:49] LABS: Appearance,Urine Clear (Clear); Bilirubin,Urine Negative (Negative); Blood,Urine Negative (Negative); Color,Urine Yellow; Glucose,Urine (UA) Negative (Negative); Ketones,Urine Negative (Negative); Leukocyte Esterase,Urine Negative (Negative); Nitrite,Urine Negative (Negative); PH, Urine 7.5 (5.0-8.0); Protein,Urine Negative (Negative); Specific Gravity,Urine 1.013 (1.001-1.035); Urobilinogen,Urine <2.0 mg/dL (<2.0)
[2018-03-06 18:59] LABS: ALT 26 U/L (9-52); AST 19 U/L (14-36); Albumin 4.5 g/dL (3.5-5.0); Alkaline Phosphatase 77 U/L (38-126); Anion Gap 5 mmol/L; Blood Urea Nitrogen 7 mg/dL (7-17); Calcium 9.7 mg/dL (8.4-10.2); Carbon Dioxide 33 mmol/L (22-30); Chloride 104 mmol/L (98-107); Glucose 85 mg/dL (74-99); Lipase 31 U/L (23-300); Potassium 4.1 mmol/L (3.5-5.1); Sodium 142 mmol/L (137-145); Total Bilirubin 0.4 mg/dL (0.2-1.3); Total Protein 7.5 g/dL (6.3-8.2)
--- NOTE | 2018-03-06 19:43 | US ---
EXAMINATION TYPE: US abdomen complete DATE OF EXAM: 03/06/2018 COMPARISON: NONE CLINICAL HISTORY: abdominal pain. Pain nausea and vomiting. EXAM MEASUREMENTS: Liver Length: 17.0 cm Gallbladder Wall: 0.3 cm CBD: 0.5 cm Spleen: 11.4 cm Right Kidney: 9.9 x 3.5 x 4.1 cm Left Kidney: 10.9 x 4.7 x 5.5 cm Pancreas: wnl Liver: wnl Gallbladder: wnl Evidence for sonographic Richmond's sign: No CBD: wnl Spleen: wnl Right Kidney: wnl Left Kidney: wnl Upper IVC: wnl Abd Aorta: wnl IMPRESSION: Normal complete abdominal sonogram. No gallstones or dilated ducts. No free fluid.
[2018-03-06] MEDS ORDERED: MAG HYDROX/AL HYDROX/SIMETH 30 ML, HYOSCYAMINE ELIXIR 10 ML, CIMETIDINE HCL 300 MG, LID... PO STA ×4 (19:44)
[2018-03-06 20:58] VITALS: BP 112/69; PULSE 82; RESP 17; TEMP 98.2
== END 2018-03-06 20:59 | disposition home or self-care (01) ==
LOC: EC 17:21
DX: R10.11 Right upper quadrant pain (principal); R10.13 Epigastric pain; R11.10 Vomiting, unspecified; J45.909 Unspecified asthma, uncomplicated; F17.200 Nicotine dependence, unspecified, uncomplicated; Z32.02 Encounter for pregnancy test, result negative; Z88.0 Allergy status to penicillin; Z88.6 Allergy status to analgesic agent
CPT/HCPCS: 36415; 80053; 83690; 85025; 81003; 81025; 76700; 99284; 96374; 96375; 96361; J2765; J2270

== ENCOUNTER 2018-05-05 22:34 | Emergency (ER) | payer BC, OTHER ==
[2018-05-05 22:42] VITALS: BP 113/73; PULSE 81; RESP 20; TEMP 98.2
--- NOTE | 2018-05-05 23:32 | ED ---
Female Urogenital HPI - General Chief complaint: Urogenital Stated complaint: poss UTI Time Seen by Provider: 05/05/18 22:44 Source: patient Mode of arrival: ambulatory Limitations: no limitations - History of Present Illness Initial comments: Rosalie is a previously healthy 28-year-old female who presents to the emergency department today for evaluation of dysuria and hematuria. Patient reports that she was in her usual state of health until this afternoon when she developed gross hematuria, dysuria and urinary frequency. Patient reports this is similar to previous UTIs but she has not had a urinary tract infection in over 10 years. Patient reports that she's sexually active and does not have concern for sexual transmitted infections, she's had tubal ligation and has no concern for . Last Menstrual Period: 04/28/18 - Related Data Home Medications Medication Instructions Recorded Confirmed Albuterol Inhaler [Ventolin Hfa 2 puff INHALATION RT-Q6H PRN 06/15/17 03/06/18 Inhaler] Previous Rx's Medication Instructions Recorded Famotidine [Pepcid] 40 mg PO BID #30 tab 03/06/18 Sulfamethox-Tmp 800-160Mg [Bactrim 1 tab PO Q12HR #14 tab 05/06/18 DS 800-160 mg] Allergies Allergy/AdvReac Type Severity Reaction Status Date / Time aspirin Allergy Anaphylaxis Verified 05/05/18 22:42 Penicillins Allergy Anaphylaxis Verified 05/05/18 22:42 Review of Systems ROS Statement: Those systems with pertinent positive or pertinent negative responses have been documented in the HPI. ROS Other: All systems not noted in ROS Statement are negative. Past Medical History Past Medical History: Asthma, Thyroid Disorder Additional Past Medical History / Comment(s): back pain; Ovarian Cyst; Endometriosis History of Any Multi-Drug Resistant Organisms: None Reported Past Surgical History: Appendectomy, Section, Tubal Ligation Additional Past Surgical History / Comment(s): thyroid Past Anesthesia/Blood Transfusion Reactions: Family History of Problems w/ Anesthesia, Motion Sickness Additional Past Anesthesia/Blood Transfusion Reaction / Comment(s): mother hx of ponv, and agitation with anesthesia Past Psychological History: Depression Smoking Status: Current every day smoker Past Alcohol Use History: Occasional Past Drug Use History: None Reported - Past Family History Mother Family Medical History: No Reported History General Exam - General Exam Comments Initial Comments: Physical Exam GENERAL: Patient is well-developed and well-nourished. Patient is nontoxic and well- hydrated and is in no distress. HENT: Normocephalic, Atraumatic. EYES: PERRL, EOMI PULMONARY: Unlabored respirations. No audible rales rhonchi or wheezing was noted. CARDIOVASCULAR: There is a regular rate and rhythm without any murmurs gallops or rubs. ABDOMEN: Soft and nontender with normal bowel sounds. SKIN: Skin is clear with no lesions or rashes and otherwise unremarkable. : Normal external genitalia Pelvic exam with a closed cervical os, no cervical motion tenderness, no erythema or skin changes, no bleeding at the cervix NEUROLOGIC: Patient is alert and oriented x3. Moving all extremities spontaneously MUSCULOSKELETAL: Normal extremities with adequate strength and full range of motion. No lower extremity swelling or edema. No calf tenderness. PSYCHIATRIC: Normal psychiatric evaluation. Limitations: no limitations Limitations: no limitations Course Vital Signs 05/05/18 22:40 Temperature 98.2 F Pulse Rate 81 Respiratory 20 Rate Blood Pressure 113/73 O2 Sat by Pulse 98 Oximetry Medical Decision Making - Medical Decision Making Patient was seen and evaluated, history was obtained from the patient Patient with UTI-like symptoms, minimal concern for exposure STI Pelvic exam with no significant findings Urinalysis with gross hematuria At this time I will treat for suspected urinary tract infection with by mouth Bactrim. 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 Supportive care measures were discussed, follow-up with primary care physician for reevaluation by the end of the week was discussed. Referral to urology if hematuria persists. All questions pertaining to care were answered the best my ability and the patient was discharged home in stable condition. - Lab Data Lab Results 05/05/18 05/05/18 Range/Units 23:30 23:30 Urine Color Red Urine Appearance Bloody H (Clear) Urine RBC >182 H (0-5) /hpf Urine WBC >182 H (0-5) /hpf Urine Mucus Moderate H (None) /hpf Urine HCG, Qual Not Detected (Not Detectd) Disposition Clinical Impression: Urinary tract infection, Dysuria Disposition: HOME SELF-CARE Condition: Good Instructions: Urinary Tract Infection in Women (ED) Prescriptions: Sulfamethox-Tmp 800-160Mg [Bactrim DS 800-160 mg] 1 tab PO Q12HR #14 tab Is patient prescribed a controlled substance at d/c from ED?: No If prescribed controlled substance>3 days was MAPS reviewed?: No Referrals: Vince Kay DO [Primary Care Provider] - 1-2 days Seamus Laird MD [STAFF PHYSICIAN] - 1-2 days
[2018-05-05 23:52] LABS: Mucus,Urine Moderate /hpf; RBC,Urine >182 /hpf (0-5); WBC,Urine >182 /hpf (0-5)
[2018-05-05 23:53] LABS: Appearance,Urine Bloody (Clear); Color,Urine Red
[2018-05-05] MEDS ORDERED: SULFAMETH-TMP DS STARTER PACK 2 TAB BTL PO STA (23:59)
[2018-05-08 16:06] LABS: C. trachomatis,PCR Negative (Neg,Equiv); Chlamydia trachomatis Source Vagina; N. gonorrhoeae,PCR Negative (Neg,Equiv); Neisseria Source Vagina
== END 2018-05-06 00:22 | disposition home or self-care (01) ==
LOC: EC 22:34
DX: N39.0 Urinary tract infection, site not specified (principal); J45.909 Unspecified asthma, uncomplicated; F17.200 Nicotine dependence, unspecified, uncomplicated; Z90.49 Acquired absence of other specified parts of digestive tract; Z87.42 Personal history of other diseases of the female genital tract; Z98.51 Tubal ligation status; Z88.0 Allergy status to penicillin; Z88.6 Allergy status to analgesic agent
CPT/HCPCS: 81001; 81025; 87070; 87205; 87491; 87591; 87808; 99283

== ENCOUNTER 2018-05-29 18:16 | Emergency (ER) | payer BC, OTHER ==
[2018-05-29 18:27] VITALS: BP 116/73; PULSE 65; RESP 18; TEMP 98.7
[2018-05-29] MEDS ORDERED: HYDROcodone/APAP 10-325MG 1 EACH TAB PO ONE (18:41)
[2018-05-29] MEDS ORDERED: ACET/COD 300 MG/30 MG STARTER PACK 6 TAB BTL PO STA (18:41)
--- NOTE | 2018-05-29 18:45 | ED ---
ENT HPI - General Chief complaint: Dental/Oral Stated complaint: dental pain post extraction Time Seen by Provider: 05/29/18 18:31 Source: patient, RN notes reviewed Mode of arrival: ambulatory Limitations: no limitations - History of Present Illness Initial comments: 28-year-old female presents emergency Department chief complaint of right lower dental pain. Patient states she had 3 tooth extractions by [facility] at the beginning of the week. Patient states that she was discharged on and October for him. Patient states that she is concern for possible infection or dry socket. She was unable to the dentist today. She has no difficulty opening close her mouth or typically swelling. Patient reports no fevers or chills. - Related Data Home Medications Medication Instructions Recorded Confirmed Albuterol Inhaler [Ventolin Hfa 2 puff INHALATION RT-Q6H PRN 06/15/17 03/06/18 Inhaler] Previous Rx's Medication Instructions Recorded Famotidine [Pepcid] 40 mg PO BID #30 tab 03/06/18 Sulfamethox-Tmp 800-160Mg [Bactrim 1 tab PO Q12HR #14 tab 05/06/18 DS 800-160 mg] Clindamycin HCl 300 mg PO Q6HR #40 cap 05/29/18 Allergies Allergy/AdvReac Type Severity Reaction Status Date / Time aspirin Allergy Anaphylaxis Verified 05/29/18 18:27 Penicillins Allergy Anaphylaxis Verified 05/29/18 18:27 Review of Systems ROS Statement: Those systems with pertinent positive or pertinent negative responses have been documented in the HPI. ROS Other: All systems not noted in ROS Statement are negative. Past Medical History Past Medical History: Asthma, Thyroid Disorder Additional Past Medical History / Comment(s): back pain; Ovarian Cyst; Endometriosis History of Any Multi-Drug Resistant Organisms: None Reported Past Surgical History: Appendectomy, Section, Tubal Ligation Additional Past Surgical History / Comment(s): thyroid Past Anesthesia/Blood Transfusion Reactions: Family History of Problems w/ Anesthesia, Motion Sickness Additional Past Anesthesia/Blood Transfusion Reaction / Comment(s): mother hx of ponv, and agitation with anesthesia Past Psychological History: Depression Smoking Status: Current every day smoker Past Alcohol Use History: Occasional Past Drug Use History: None Reported - Past Family History Mother Family Medical History: No Reported History General Exam Limitations: no limitations General appearance: alert, in no apparent distress Head exam: Present: atraumatic, normocephalic, normal inspection Eye exam: Present: normal appearance, PERRL, EOMI. Absent: scleral icterus, conjunctival injection, periorbital swelling ENT exam: Present: mucous membranes moist. Absent: normal oropharynx (Right lower there are noted 3 recent tooth extractions there is no active bleeding no fluctuant area there is a white coating over the pockets. Patient has no evidence of trismus mild tenderness over the lower jawline) Neck exam: Present: normal inspection, full ROM. Absent: tenderness, meningismus, lymphadenopathy Respiratory exam: Present: normal lung sounds bilaterally. Absent: respiratory distress, wheezes, rales, rhonchi, stridor Cardiovascular Exam: Present: regular rate, normal rhythm, normal heart sounds. Absent: systolic murmur, diastolic murmur, rubs, gallop, clicks Course Vital Signs 05/29/18 18:25 Temperature 98.7 F Pulse Rate 65 Respiratory 18 Rate Blood Pressure 116/73 O2 Sat by Pulse 100 Oximetry Medical Decision Making - Medical Decision Making 28-year-old female presented for right-sided dental pain. This concerning for possible underlying infection versus dry socket. Patient will follow-up with dentist on Sunday was started on clindamycin at this time vitals reviewed and are stable. Patient will be given adequate pain control. Disposition Clinical Impression: Dental infection, Dry socket Disposition: HOME SELF-CARE Condition: Stable Instructions: Dry Socket (ED) Additional Instructions: Please return to the Emergency Department if symptoms worsen or any other concerns. Prescriptions: Clindamycin HCl 300 mg PO Q6HR #40 cap Is patient prescribed a controlled substance at d/c from ED?: No Referrals: Vince Kay DO [Primary Care Provider] - 1-2 days Time of Disposition: 18:44
== END 2018-05-29 18:50 | disposition home or self-care (01) ==
LOC: EC 18:16
DX: K04.7 Periapical abscess without sinus (principal); M27.3 Alveolitis of jaws; J45.909 Unspecified asthma, uncomplicated; F17.200 Nicotine dependence, unspecified, uncomplicated; Z88.0 Allergy status to penicillin; Z88.6 Allergy status to analgesic agent; Z98.818 Other dental procedure status
CPT/HCPCS: 99283

== ENCOUNTER → 2018-07-17 | Outpatient (CLI) | payer BC, OTHER ==
[2018-07-17 15:46] LABS: HCT 39.3 % (34.0-46.0); HGB 12.7 gm/dL (11.4-16.0); MCH 29.8 pg (25.0-35.0); MCHC 32.2 g/dL (31.0-37.0); MCV 92.4 fL (80.0-100.0); Mean Platelet Volume 6.7; Platelet Count 285 k/uL (150-450); RBC 4.25 m/uL (3.80-5.40); RDW 13.1 % (11.5-15.5)
[2018-07-17 21:19] LABS: ACTH 12.7 pg/mL (0.00-45.99)
[2018-07-17 21:26] LABS: Albumin 4.2 g/dL (3.80-4.90); Anion Gap 6.6 mmol/L (4.00-12.00); Calcium 9.4 mg/dL (8.7-10.3); Carbon Dioxide 28.4 mmol/L (21.6-31.8); Globulin 2.1 g/dL (1.6-3.3); Potassium 4.6 mmol/L (3.5-5.5); Total Bilirubin 0.2 mg/dL (0.2-1.2); Total Protein 6.3 g/dL (6.2-8.2)
[2018-07-17 21:33] LABS: T4, Free (Free Thyroxine) 1.2 ng/dL (0.80-1.80)
== END | disposition home or self-care (01) ==
LOC: LABWHC1 14:59
PROVIDERS: ATTEND Internal Medicine Endocrinology, Diabetes & Metabolism
DX: E04.2 Nontoxic multinodular goiter (principal); R53.83 Other fatigue
CPT/HCPCS: 36415; 80053; 82024; 82533; 82607; 84146; 84439; 84443; 84481; 85027

== ENCOUNTER → 2018-07-29 | Outpatient (CLI) | payer BC, OTHER | END | disposition home or self-care (01) | LOC: LABWHC1 10:00 | PROVIDERS: ATTEND Internal Medicine Endocrinology, Diabetes & Metabolism | DX: E04.2 Nontoxic multinodular goiter (principal); R53.83 Other fatigue | CPT/HCPCS: 36415; 82024; 82533 ==

== ENCOUNTER → 2018-07-31 | Outpatient (CLI) | payer BC, OTHER ==
--- NOTE | 2018-08-01 15:46 | US ---
EXAMINATION TYPE: US thyroid st tissue head/neck DATE OF EXAM: 07/31/2018 COMPARISON: NONE CLINICAL HISTORY: E04.2 nontoxic multinodular goiter. f/u exam, right thyroidectomy GLAND SIZE: Right Lobe: 1.9 x 0.4 x 0.5cm - residual tissue Left Lobe: 5.1 x 1.5 x 1.8 cm Overall Parenchyma: homogeneous Isthmus Thickness: 0.4 cm NODULES RIGHT: # of nodules measured on right: Residual tissue noted LEFT: # of nodules measured on left: 0 ISTHMUS: # of nodules measured in the isthmus: 0 Bilateral neck scanned, no evidence of lymphadenopathy. IMPRESSION: Normal appearance to a post right thyroid lobe activity. Some residual tissue remains on the right.
== END | disposition home or self-care (01) ==
LOC: RADUSWWP 16:10
PROVIDERS: ATTEND Internal Medicine Endocrinology, Diabetes & Metabolism
DX: E04.2 Nontoxic multinodular goiter (principal)
CPT/HCPCS: 76536

== ENCOUNTER 2018-08-23 18:51 | Emergency (ER) | payer BC, OTHER ==
[2018-08-23 18:55] VITALS: BP 125/77; PULSE 88; RESP 20; TEMP 98.2
--- NOTE | 2018-08-23 20:38 | ED ---
General Adult HPI - General Chief complaint: Abdominal Pain Stated complaint: abd pain Time Seen by Provider: 08/23/18 20:10 Source: patient Mode of arrival: ambulatory Limitations: no limitations - History of Present Illness Initial comments: Dictation was produced using [employer] dictation software. please excuse any grammatical, word or spelling errors. Chief Complaint: 28-year-old female with no significant past medical history presents with abdominal pain and abdominal mass. History of Present Illness: She 28-year-old female. She states she's been constipated for the last one week. Patient states however she is nauseated and no vomiting. States that she should last had any form of abdominal surgery 3 years ago. Denies any fever, chills or night sweats. Patient states the mass is along the left lateral edge of her scar painful to the touch. The ROS documented in this emergency department record has been reviewed and confirmed by me. Those systems with pertinent positive or negative responses have been documented in the HPI. All other systems are other negative and/or noncontributory. PHYSICAL EXAM: General Impression: Alert and oriented x3, not in acute distress HEENT: Normocephalic atraumatic, extra-ocular movements intact, pupils equal and reactive to light bilaterally, mucous membranes moist. Cardiovascular: Heart regular rate and rhythm, S1&S2 audible, no murmurs, rubs or gallops Chest: Lungs clear to auscultation bilaterally, no rhonchi, no wheeze, no rales Abdomen: Bowel sounds present, abdomen soft, small 2 x 2 centimeter mass palpated over the left and of the scar, non-distended, no organomegaly Musculoskeletal: Pulses present and equal in all extremities, no peripheral edema Motor: Power 5/5 bilaterally, no focal deficits noted Neurological: CN II-XII grossly intact, no focal motor or sensory deficits noted Skin: Intact with no visualized rashes Psych: Normal affect and mood ED course: 28yo female presents with abdominal pain. There is a symptomatically palpable mass over the left lower abdomen on arrival are within acceptable limits. Rest of the abdominal exam is unremarkable. Return evaluation obtained. CBC, metabolic panel unremarkable. CT of the abdomen and pelvis did not show any signs of hernia. Rest of CT is otherwise unremarkable. Patient reevaluated with no change in symptoms. This point patient's symptoms likely secondary to scar tissue about the site of the C- section. Patient's not showing signs of obstruction. No nausea vomiting in the ER. Patient clear for discharge. - Related Data Home Medications Medication Instructions Recorded Confirmed Acetaminophen [Tylenol Extra 500 mg PO Q6H PRN 08/23/18 08/23/18 Strength] Ondansetron [Zofran] 4 mg PO Q8HR PRN 08/23/18 08/23/18 Allergies Allergy/AdvReac Type Severity Reaction Status Date / Time aspirin Allergy Anaphylaxis Verified 08/23/18 20:18 Penicillins Allergy Anaphylaxis Verified 08/23/18 20:18 Review of Systems ROS Statement: Those systems with pertinent positive or pertinent negative responses have been documented in the HPI. ROS Other: All systems not noted in ROS Statement are negative. Past Medical History Past Medical History: Asthma, Thyroid Disorder Additional Past Medical History / Comment(s): back pain; Ovarian Cyst; Endometriosis History of Any Multi-Drug Resistant Organisms: None Reported Past Surgical History: Appendectomy, Section, Tubal Ligation Additional Past Surgical History / Comment(s): thyroid Past Anesthesia/Blood Transfusion Reactions: Family History of Problems w/ Anesthesia, Motion Sickness Additional Past Anesthesia/Blood Transfusion Reaction / Comment(s): mother hx of ponv, and agitation with anesthesia Past Psychological History: Depression Smoking Status: Current every day smoker Past Alcohol Use History: Occasional Past Drug Use History: None Reported - Past Family History Mother Family Medical History: No Reported History General Exam Limitations: no limitations Course Vital Signs 08/23/18 18:53 Temperature 98.2 F Pulse Rate 88 Respiratory 20 Rate Blood Pressure 125/77 O2 Sat by Pulse 99 Oximetry Medical Decision Making - Lab Data Result diagrams: 08/23/18 20:45 08/23/18 20:45 Lab Results 08/23/18 08/23/18 08/23/18 Range/Units 20:45 20:45 20:45 WBC 8.4 (3.8-10.6) k/uL RBC 4.49 (3.80-5.40) m/uL Hgb 13.8 (11.4-16.0) gm/dL Hct 40.7 (34.0-46.0) % MCV 90.7 (80.0-100.0) fL MCH 30.6 (25.0-35.0) pg MCHC 33.8 (31.0-37.0) g/dL RDW 12.9 (11.5-15.5) % Plt Count 197 (150-450) k/uL Neutrophils % 49 % Lymphocytes % 36 % Monocytes % 7 % Eosinophils % 4 % Basophils % 1 % Neutrophils # 4.1 (1.3-7.7) k/uL Lymphocytes # 3.1 (1.0-4.8) k/uL Monocytes # 0.6 (0-1.0) k/uL Eosinophils # 0.3 (0-0.7) k/uL Basophils # 0.1 (0-0.2) k/uL Sodium 140 (137-145) mmol/L Potassium 4.5 (3.5-5.1) mmol/L Chloride 106 (98-107) mmol/L Carbon Dioxide 28 (22-30) mmol/L Anion Gap 6 mmol/L BUN 11 (7-17) mg/dL Creatinine 0.82 (0.52-1.04) mg/dL Est GFR (CKD-EPI)AfAm >90 (>60 ml/min/1.73 sqM) Est GFR (CKD-EPI)NonAf >90 (>60 ml/min/1.73 sqM) Glucose 82 (74-99) mg/dL Plasma Lactic Acid Sandip 0.8 (0.7-2.0) mmol/L Calcium 9.7 (8.4-10.2) mg/dL Total Bilirubin 0.4 (0.2-1.3) mg/dL AST 13 L (14-36) U/L ALT 26 (9-52) U/L Alkaline Phosphatase 57 (38-126) U/L Total Protein 6.4 (6.3-8.2) g/dL Albumin 3.9 (3.5-5.0) g/dL Disposition Clinical Impression: Abdominal pain Disposition: HOME SELF-CARE Condition: Good Instructions (If sedation given, give patient instructions): Abdominal Pain (ED ) Is patient prescribed a controlled substance at d/c from ED?: No Referrals: Vince Kay DO [Primary Care Provider] - 1-2 days Time of Disposition: 22:22
[2018-08-23 21:16] LABS: Basophils # (A) 0.1 k/uL (0-0.2); Basophils % (A) 1 %; Eosinophils # (A) 0.3 k/uL (0-0.7); Eosinophils % (A) 4 %; HCT 40.7 % (34.0-46.0); HGB 13.8 gm/dL (11.4-16.0); Lymphocytes # (A) 3.1 k/uL (1.0-4.8); Lymphocytes % (A) 36 %; MCH 30.6 pg (25.0-35.0); MCHC 33.8 g/dL (31.0-37.0); MCV 90.7 fL (80.0-100.0); Mean Platelet Volume 7.9; Monocytes # (A) 0.6 k/uL (0-1.0); Monocytes % (A) 7 %; Neutrophils # (A) 4.1 k/uL (1.3-7.7); Neutrophils % (A) 49 %; Platelet Count 197 k/uL (150-450); RBC 4.49 m/uL (3.80-5.40); RDW 12.9 % (11.5-15.5); WBC 8.4 k/uL (3.8-10.6)
--- NOTE | 2018-08-23 21:20 | CT ---
EXAMINATION TYPE: CT abdomen pelvis w con DATE OF EXAM: 08/23/2018 COMPARISON: 07/20/2016 HISTORY: lower anterior abdominal pain CT DLP: 593.4 mGycm Automated exposure control for dose reduction was used. TECHNIQUE: Helical acquisition of images was performed from the lung bases through the pelvis. CONTRAST: Performed without Oral Contrast and with IV Contrast, patient injected with 100 mL of Isovue 300. FINDINGS: Lung bases are clear. There is no pleural effusion. Heart size is normal. There is no pericardial eff usion. Liver spleen pancreas appear normal. Bile ducts are not dilated. Gallbladder appears normal. There is no adrenal mass. Kidneys show satisfactory contrast opacification. There is no hydronephrosi s. There is no retroperitoneal adenopathy. Bladder distends smoothly. There is no inguinal hernia. There is no free fluid in the pelvis. Uterus is anteverted. There is no mesenteric edema. There is no evidence of free air. There is no ascites. There is a surgical clip in the right lower quadrant. Sofia endix is not seen. There is no sign of appendicitis. Lumbar spine is intact. I see no bony destructiv e process. IMPRESSION: NEGATIVE CT SCAN OF THE ABDOMEN AND PELVIS. NO ADVERSE CHANGE COMPARED TO OLD EXAM.
[2018-08-23 21:28] LABS: ALT 26 U/L (9-52); AST 13 U/L (14-36); Albumin 3.9 g/dL (3.5-5.0); Alkaline Phosphatase 57 U/L (38-126); Anion Gap 6 mmol/L; Blood Urea Nitrogen 11 mg/dL (7-17); Calcium 9.7 mg/dL (8.4-10.2); Carbon Dioxide 28 mmol/L (22-30); Chloride 106 mmol/L (98-107); Glucose 82 mg/dL (74-99); Potassium 4.5 mmol/L (3.5-5.1); Sodium 140 mmol/L (137-145); Total Bilirubin 0.4 mg/dL (0.2-1.3); Total Protein 6.4 g/dL (6.3-8.2)
== END 2018-08-23 22:31 | disposition home or self-care (01) ==
LOC: EC 18:51
DX: R10.9 Unspecified abdominal pain (principal); R19.00 Intra-abdominal and pelvic swelling, mass and lump, unspecified site; R11.0 Nausea; F17.200 Nicotine dependence, unspecified, uncomplicated; Z88.0 Allergy status to penicillin; Z88.6 Allergy status to analgesic agent; Z90.49 Acquired absence of other specified parts of digestive tract
CPT/HCPCS: 36415; 80053; 83605; 85025; 74177; 99284; Q9967

== ENCOUNTER → 2020-12-20 | Outpatient (CLI) | payer BC, OTHER ==
--- NOTE | 2020-12-20 15:52 | XR ---
EXAMINATION TYPE: XR shoulder complete RT DATE OF EXAM: 12/20/2020 COMPARISON: NONE HISTORY: Pain TECHNIQUE: Three views are submitted. FINDINGS: The osseous structures are intact. There is no acute fracture or dislocation. The AC joint is maint ained. IMPRESSION: 1. No acute process.
== END | disposition home or self-care (01) ==
LOC: RADXRMAIN 14:41
PROVIDERS: ATTEND Nurse Practitioner Family
DX: M25.511 Pain in right shoulder (principal)

== ENCOUNTER → 2021-02-10 | Outpatient (CLI) | payer OTHER ==
--- NOTE | 2021-02-10 13:29 | MR ---
EXAMINATION TYPE: MR shoulder RT wo con DATE OF EXAM: 02/10/2021 COMPARISON: Right shoulder x-ray December 20, 2020 HISTORY: Right shoulder pain for 3 months with difficulty raising arm overhead. No known injury. TECHNIQUE: Multiplanar, multisequence imaging of the right shoulder is performed without contrast. FINDINGS: Rotator Cuff: Distal supraspinatus and infraspinatus tendons are intact. Subscapularis tendon intact. Rotator cuff muscle bulk preserved. Acromioclavicular Joint: Acromioclavicular joint appears within normal limits. Slight type II downslo ping acromion with loss of underlying fat plane on coronal and sagittal images. Glenohumeral Joint: Small joint effusion. No significant spurring. Labrum: The labrum appears grossly intact given limitation of non-arthrogram study. Biceps Tendon: The long head of biceps is in normal location within bicipital groove. Bone marrow signal: No focal abnormal marrow signal is appreciated. Other: Focal fluid signal subdeltoid/subacromial bursa coronal image 16. IMPRESSION: Slight type II downsloping acromion, correlate for underlying impingement. Mild subdeltoi d/subacromial bursitis. No rotator cuff or labral tear seen.
== END | disposition home or self-care (01) ==
LOC: RADMRIMAIN 12:02
PROVIDERS: ATTEND Family Medicine
DX: M75.51 Bursitis of right shoulder (principal)

== ENCOUNTER → 2021-04-15 | Outpatient (CLI) | payer OTHER ==
--- NOTE | 2021-04-15 19:04 | US ---
EXAMINATION TYPE: US thyroid st tissue head/neck DATE OF EXAM: 04/15/2021 COMPARISON: NONE CLINICAL HISTORY: R59.9 ENLARGED LYMPHNODES. order states thyroid US, patient did not have complaints of lymph nodes, h/o rt thyroidectomy GLAND SIZE: Right Lobe: Surgically absent Left Lobe: 5.1 x 1.8 x 1.3 cm Overall Parenchyma: homogeneous Isthmus Thickness: 0.3 cm NODULES RIGHT: # of nodules measured on right: residual tissue noted = 1.9 x 0.7 x 0.5cm, stable LEFT: # of nodules measured on left: 1 1. 0.5 X 0.4 x 0.4 cm, mid, mixed cystic and solid nodule, which is wider than tall, with smooth ma rgins, without echogenic foci. Prior size: not seen previously ISTHMUS: # of nodules measured in the isthmus: 0 Bilateral neck scanned, no evidence of lymphadenopathy. IMPRESSION: only mildly suspicious, but subcentimeter nodule, consider follow up 2017 ACR TI-RADS LEVEL: 3 *Highest TI-RADS level nodule reported
== END | disposition home or self-care (01) ==
LOC: RADUSWWP 16:10
PROVIDERS: ATTEND Family Medicine
DX: E04.1 Nontoxic single thyroid nodule (principal)
CPT/HCPCS: 76536

== ENCOUNTER → 2021-06-14 | Outpatient (CLI) | payer OTHER ==
--- NOTE | 2021-06-14 11:32 | US ---
EXAMINATION TYPE: US pelvic complete DATE OF EXAM: 06/14/2021 COMPARISON: CT August 15, 2019 CLINICAL HISTORY: M92.6 Irregular menstruation, unspecified. Patient stated had normal LMP in Novembe r then 3 weeks later had spotting; not currently on thyroid medication, but stated will soon be reeva luated for resuming thyroid medication; tubal ligation; C section x 2 with palpable midline at scar a nd patient thought US was to evaluate for hernia here; . TECHNIQUE: Transabdominal (TA). Transabdominal sonographic images of the pelvis were acquired. Date of LMP: 05/22/21 EXAM MEASUREMENTS: Uterus: 8.8 x 4.5 x 3.36 cm Endometrial Stripe: 0.8 cm Right Ovary: 5..0 x 3.6 x 3.8 cm Left Ovary: 3.1 x 2.7 x 1.6 cm 1. Uterus: Anteverted wnl 2. Endometrium: thickness appears upper limits of normal for day 10 LMP approximately with vaginal s potting end of May; no masses seen within endometrium 3. Right Ovary: More prominent ovary, small ovarian thin-walled cyst = 1.1 x 3.0 x 3.1cm 4. Left Ovary: multiple small follicles seen Spectral, color and waveform Doppler imaging shows good arterial and venous flow within the ovaries ; 5. Bilateral Adnexa: wnl 6. Posterior cul-de-sac: small amount of free fluid is seen here = 3.0 x 1.4 x 0.4cm. TA US at palpable at C section scar: irregular, hypoechoic, area is seen disrupting normal muscular l nicholas at C section scar (palpable). No movement of inferior tissue is seen moving into main body of ma ss with Valsalva Maneuver. IMPRESSION: Focal heterogeneous hypoechoic area a scar could reflect focal asymmetric scar tissue or developing keloid formation. Incidental 3.1 cm benign thin-walled right ovarian cyst. Tiny amount of free fluid in pelvic cul-de-sac.
== END | disposition home or self-care (01) ==
LOC: RADUSWWP 09:28
PROVIDERS: ATTEND Family Medicine
DX: N92.6 Irregular menstruation, unspecified (principal)
CPT/HCPCS: 76856

== ENCOUNTER → 2021-07-22 | Outpatient (CLI) | payer OTHER ==
--- NOTE | 2021-07-22 12:45 | CT ---
EXAMINATION TYPE: CT abdomen pelvis w con DATE OF EXAM: 07/22/2021 COMPARISON: 08/15/2019 HISTORY: 31-year-old female R19.00 Pelvic Mass TECHNIQUE: Contiguous axial scanning of the abdomen and pelvis following administration of 100 ml Iso jamaal 300 IV contrast. Delayed images through the kidneys and coronal/sagittal reconstructions perform ed. CT DLP: 484.10 mGycm Automated exposure control for dose reduction was used. FINDINGS: Heart normal size without pericardial effusion. Lung bases clear without pleural effusion. No focal liver lesion or biliary ductal dilatation. Portal venous system is patent. Gallbladder, adrenal glands, and pancreas within normal limits. A few scattered calcified granulomas in the spleen. No dilated small bowel, free fluid, or free air. No mesenteric or retroperitoneal lymphadenopathy. Appendix not clearly identified. Oral contrast progressed to the mid transverse colon. Scattered mild to moderate stool. No pericolonic inflammatory change. There is a clip in the right lower quadrant that may represent a displaced tubal ligation clip clip, missing from the left adnexa. Bladder urine distended. Uterus anteverted. Left ovary is visualized. Thin rim enhancement of a cystic lesion in the right ovary measuring 1.9 cm . The right ovary measures 3.8 x 3.3 x 3.0 cm for a volume of 18.8 mL. No abnormal fluid collection i n the pelvis or pelvic lymphadenopathy. Phlebolith in the left side of the pelvis. Along the anterior midline pelvic abdominal wall musculature, there is a vague 2.8 x 2.0 cm oval area , axial image 61, and sagittal image 59. Probably represents scar tissue and less there is a clinical pain here. Bones: No osseous destructive process. IMPRESSION: 1. A 1.9 CM DOMINANT FOLLICLE OR FUNCTIONAL CYST OF THE RIGHT OVARY. 2. A VAGUE 2.8 X 2.0 CM OVAL AREA ALONG THE ANTERIOR MIDLINE PELVIC WALL MUSCULATURE. ALONG THE EXPEC BOWEN SCAR. THIS PROBABLY REPRESENTS SCAR UNLESS THERE IS CYCLICAL PAIN ASSOCIATED WITH THIS AREA, IN WHICH CASE, DISPLACED/ECTOPIC ENDOMETRIAL TISSUE SHOULD BE CONSIDERED. 3. MALPOSITIONED LEFT TUBAL LIGATION CLIP LOCATED IN THE RIGHT LOWER QUADRANT.
== END | disposition home or self-care (01) ==
LOC: RADCTMAIN 08:22
PROVIDERS: ATTEND Surgery Plastic and Reconstructive Surgery
DX: N83.01 Follicular cyst of right ovary (principal)
CPT/HCPCS: 74177; Q9967 ×2

== ENCOUNTER → 2021-08-30 | Outpatient (CLI) | payer OTHER ==
[2021-08-31 13:28] LABS: Coronavirus SARS CoV-2 Not Detected (Not Detected)
== END | disposition home or self-care (01) ==
LOC: LABPAT 11:44
PROVIDERS: ATTEND Surgery Plastic and Reconstructive Surgery
DX: Z20.822 Contact with and (suspected) exposure to COVID-19 (principal)

== ENCOUNTER 2021-09-02 11:32 | Day surgery (SDC) | payer OTHER ==
[2021-08-31 12:31] VITALS: BMI 20.6
--- NOTE | 2021-09-02 08:02 | P.GSHP ---
History of Present Illness H&P Date: 09/02/21 CHIEF COMPLAINT: History of intra-abdominal adhesions HISTORY OF PRESENT ILLNESS: The patient is a 31-year-old female who presents with history of intra-abdominal adhesions from multiple prior surgeries including increasing abdominal pain. She now presents for diagnostic laparoscopy including lysis of adhesions. PAST MEDICAL HISTORY: Please see list. PAST SURGICAL HISTORY: Please see list. MEDICATIONS: Please see list. ALLERGIES: Please see list. SOCIAL HISTORY: No illicit drug use FAMILY HISTORY: No reports of Crohn disease or ulcerative colitis. REVIEW OF ORGAN SYSTEMS: CONSTITUTIONAL: No reports of fevers or chills. GI: Denies any blood in stools or constipation. PHYSICAL EXAM: VITAL SIGNS: Stable GENERAL: Well-developed pleasant and in no acute distress. HEENT: No scleral icterus. Extraocular movements grossly intact. Moist buccal mucosa. NECK: Supple without lymphadenopathy. CHEST: Unlabored respirations. Equal bilateral excursions. CARDIOVASCULAR: Regular rate and rhythm. Distal 2+ pulses. ABDOMEN: Soft, diffuse abdominal tenderness. No peritonitis. MUSCULOSKELETAL: No clubbing, cyanosis, or edema. ASSESSMENT: 1. Diffuse abdominal pain. 2. History of multiple abdominal surgeries. 3. Intra-abdominal adhesions. PLAN: 1. Robotic lysis of adhesions were described in detail including risk of injury to the intestine, need for further surgery, and open technique. 2. DVT prophylaxis. 3. Antibiotic prophylaxis. Past Medical History Past Medical History: Asthma, Thyroid Disorder Additional Past Medical History / Comment(s): back pain & scoliosis, Ovarian Cysts, Endometriosis, hx. of irregular heart rate but no tx. for, tested positive for Covid beginning of month-sx. resolved History of Any Multi-Drug Resistant Organisms: None Reported Past Surgical History: Appendectomy, Section, Tubal Ligation Additional Past Surgical History / Comment(s): right thyroid Past Anesthesia/Blood Transfusion Reactions: Family History of Problems w/ Anesthesia, Motion Sickness Additional Past Anesthesia/Blood Transfusion Reaction / Comment(s): mother hx of ponv, and agitation with anesthesia Smoking Status: Vaper - Past Family History Mother Family Medical History: No Reported History Medications and Allergies Home Medications Medication Instructions Recorded Confirmed Type Albuterol Inhaler [Ventolin Hfa 2 puff INHALATION RT-QID PRN 08/31/21 08/31/21 History Inhaler] Ibuprofen [Motrin] 800 mg PO Q6H PRN 08/31/21 08/31/21 History Levothyroxine Sodium [Synthroid] 25 mcg PO DAILY 08/31/21 08/31/21 History Allergies Allergy/AdvReac Type Severity Reaction Status Date / Time aspirin Allergy Anaphylaxis Verified 08/31/21 11:47 Penicillins Allergy Anaphylaxis Verified 08/31/21 11:47
[~2021-09-02 11:32] MED LIST: ACETAMINOPHEN TAB 500 MG TAB PO PRN; CLINDAMYCIN 600 MG in DEXTROSE 5% IN WATER 50 ML IVPB STA; DEXAMETHASONE SOD PHOSPHATE 4 MG/ML 1 ML VIAL IV ONE; GABAPENTIN 300 MG CAP PO PRN; HEPARIN SODIUM,PORCINE/PF 5,000 UNIT/0.5 ML SYRINGE SQ PRN; HYDROmorphone 0.5 MG/0.5 ML SYRINGE IVP PRN; LACTATED RINGERS 1,000 ML IV SCH; MIDAZOLAM 2 MG/2 ML VIAL IV PRN; ONDANSETRON 4 MG/2 ML VIAL IVP ONE; SCOPOLAMINE 1.5MG/72HR PATCH TRANSDERM ONE; SCOPOLAMINE 1.5MG/72HR PATCH TRANSDERM PRN; VANCOMYCIN 1,000 MG in SODIUM CHLORIDE 0.9% 250 ML IVPB PRN
[2021-09-02 12:43] LABS: Basophils # (A) 0.1 k/uL (0-0.2); Basophils % (A) 1 %; Eosinophils # (A) 0.2 k/uL (0-0.7); Eosinophils % (A) 3 %; HCT 42.1 % (34.0-46.0); HGB 14.5 gm/dL (11.4-16.0); Lymphocytes # (A) 1.7 k/uL (1.0-4.8); Lymphocytes % (A) 27 %; MCH 31.9 pg (25.0-35.0); MCHC 34.5 g/dL (31.0-37.0); MCV 92.4 fL (80.0-100.0); Mean Platelet Volume 8.6; Monocytes # (A) 0.4 k/uL (0-1.0); Monocytes % (A) 6 %; Neutrophils # (A) 3.9 k/uL (1.3-7.7); Neutrophils % (A) 62 %; Platelet Count 248 k/uL (150-450); RBC 4.55 m/uL (3.80-5.40); RDW 12.6 % (11.5-15.5); WBC 6.4 k/uL (3.8-10.6)
[2021-09-02 12:57] LABS: ALT 12 U/L (4-34); AST 20 U/L (14-36); African American GFR (CKD) >90 (>60 ml/min/1.73 sqM); Albumin 4.5 g/dL (3.5-5.0); Alkaline Phosphatase 70 U/L (38-126); Anion Gap 6 mmol/L; Blood Urea Nitrogen 15 mg/dL (7-17); Calcium 9.7 mg/dL (8.4-10.2); Carbon Dioxide 22 mmol/L (22-30); Chloride 109 mmol/L (98-107); Glucose 80 mg/dL (74-99); Non-African American GFR(CKD) >90 (>60 ml/min/1.73 sqM); Potassium 4.3 mmol/L (3.5-5.1); Sodium 137 mmol/L (137-145); Total Bilirubin 0.9 mg/dL (0.2-1.3); Total Protein 7.5 g/dL (6.3-8.2)
[2021-09-02 13:08] VITALS: TEMP 97.8
[2021-09-02] MEDS ORDERED: MIDAZOLAM 2 MG/2 ML VIAL IVP ONE (13:21)
--- NOTE | 2021-09-02 14:10 | P.ANPRN ---
Procedure Note - Anesthesia - Nerve Block Performed Bilateral Erector Spinae Time Out Performed: Yes (13:20) Date of Procedure: 09/02/21 Procedure Start Time: Procedure Stop Time: Location of Patient: PreOp Indication: Acute Post-Operative Pain, Requested by Surgeon (Dr Schuler) Sedation Type: Sedate with meaningful contact maintained Preparation: Sterile Prep Position: Prone Catheter: None Needle Types: Pajunk Needle Gauge: 21 Ultrasound used to visualize needle placement: Yes Ultrasound used to observe medication spread: Yes Injectate: 0.5% Ropivacaine (see comment for volume) (15cc +10cc PF Normal saline each side) Blood Aspirated: No Pain Paresthesia on Injection Noted: No Resistance on Injection: Normal Image Stored and Saved: Yes Events: Uneventful and Well Tolerated
[2021-09-02] MEDS ORDERED: PROPOFOL 10 MG/ML 20 ML VIAL IV ONE (14:40)
[2021-09-02] MEDS ORDERED: KETOROLAC 15 MG/ML 1 ML VIAL ONE (14:40)
[2021-09-02] MEDS ORDERED: GLYCOPYRROLATE 0.2 MG/ML 2 ML VIAL ONE (14:40)
[2021-09-02] MEDS ORDERED: SUCCINYLCHOLINE CHLORIDE 100 MG/5 ML SYR IV ONE (14:40)
[2021-09-02] MEDS ORDERED: ROPIVACAINE 5 MG/ML 30 ML VIAL ONE (14:40)
[2021-09-02] MEDS ORDERED: SODIUM CHLORIDE 0.9% (PF) 10 ML VIAL ONE (14:40)
[2021-09-02] MEDS ORDERED: fentaNYL (PF) 50 MCG/ML 2 ML AMP ONE (14:40)
[2021-09-02] MEDS ORDERED: KETAMINE 10 MG/ML 20 ML VIAL ONE (14:40)
[2021-09-02] MEDS ORDERED: ESMOLOL 100 MG/10 ML VIAL ONE (14:40)
[2021-09-02] MEDS ORDERED: LIDOCAINE 1% INJ 10MG/ML (20 ML MDV) ONE (14:40)
[2021-09-02] MEDS ORDERED: ROCURONIUM 10 MG/ML (5 ML VIAL) IV ONE (14:40)
[2021-09-02] MEDS ORDERED: NEOSTIGMINE 1 MG/ML 10 ML VIAL ONE (14:40)
[2021-09-02] MEDS ORDERED: BUPIVACAIN-EPI 0.25%-1:200,000 30 ML VIAL SQ ONE (15:41)
[2021-09-02] MEDS ORDERED: LACTATED RINGERS 1,000 ML IV ONE (15:56)
--- NOTE | 2021-09-02 16:34 | P.OP ---
Date of Procedure: 09/02/21 Description of Procedure: SURGEON: LAINEY VILLAFANA MD PREOPERATIVE DIAGNOSES: 1. Left lower quadrant abdominal pain 2. Personal history of endometriosis and peritoneal adhesions 3. Asthma 4. Depressive disorder 5. Hypothyroidism 6. Nicotine use POSTOPERATIVE DIAGNOSES: 1. Left lower quadrant abdominal pain due to incarcerated incisional hernia 2. Personal history of endometriosis 3. Asthma 4. Depressive disorder 5. Hypothyroidism 6. Nicotine use 7. Endometrial implantation throughout pelvis 8. Peritoneal adhesion left lower quadrant and epigastrium OPERATION: 1. Robotic-assisted da Gray Xi laparoscopic repair of initial incarcerated left lower quadrant incisional hernia without mesh 2. Robotic-assisted da Gray Xi laparoscopic lysis of adhesions 3. Robotic-assisted da Gray Xi laparoscopic ablation of endometrial implants, pelvis 6 Anesthesia: GETA, regional, local Estimated Blood Loss (ml): 5 Pathology: None COMPLICATIONS: None. Operative Findings: 1. Left upper quadrant omentum to abdominal wall adhesion, lysed 2. Left lower quadrant pelvic adhesions due to incarcerated incisional hernia from Pfannenstiel incision involving omentum 3. Endometrial deposits within incisional hernia ablated 4. Six (6) Endometrial deposits involving bilateral groin, posterior cervical space (pouch of Betito), pelvis ablated INDICATIONS: The patient is a 31-year-old female who presents with chronic pelvic pain including worsening left lower quadrant abdominal pain. She reports history of endometriosis included adhesions. Surgical intervention with laparoscopic versus robotic and open techniques were reviewed. Placement of mesh was also reviewed. Benefits and risks were thoroughly described. Informed consent was obtained. DESCRIPTION OF PROCEDURE: The patient was brought into the operating room and laid in supine position. After general induction, the abdomen had been prepped and draped in standard sterile fashion. Ioban draping was also placed. Prior to incision, a timeout protocol was confirmed with surgical team regarding the patient's name including procedures to be performed. The robot was primed prior to the procedure. A field block using local anesthetic was placed along hernia site including the proposed port sites. Initial incision was made with an #11 blade along the left upper quadrant. A 0 degree 5 mm laparoscopic trocar entry was performed and insufflated. Three 8 mm ports were placed along the upper abdominal wall under direct localization after exchanging the 5-mm for an 8 mm port. Placements of the ports were 15 cm from the target anatomy and 10 cm apart. A 12 mm port was replaced at the right upper quadrant for exchange of mesh including sutures. The da Gray Xi robot was previously primed, prepped and draped then docked from the right side of the patient onto the left side of the patient. I then sat at the robot Da Gray Xi console where working arms of the robot including Bovie cautery connected to low cautery, needle taxicab driver, and graspers placed by the assistant mechanic. Incarcerated omental contents were found at the left lower abdomen consistent with her abdominal pain. Separately, endometrial deposits were found along the bilateral groin, pouch of Betito, right ovary, bladder. Using hook cautery, adhesions of the pelvis were lysed. The incarcerated incisional hernia involving the Pfannenstiel portion of the left lower quadrant was released using hook cautery. The fascia was explored and ablated due to pre-existing endometrial deposits. The hernia defect was 2 cm in size. The hernia defects were oversewn using #1 nonabsorbable V-lock suture. Next, attention was brought to endometrial deposits which were ablated using hook cautery at least 6 identified throughout the pelvis. A separate adhesion of the left upper quadrant omental to abdominal wall was divided using hook cautery. A final endoscopic imaging was obtained. All instruments and pneumoperitoneum were evacuated from the abdominal cavity. The da Gray Xi robot was undocked from the patient. I re-scrubbed into the case for closure of incisions. The fascia of the 12-mm port was probed and less than 8-mm in size. The incisions were reapproximated using 4-0 Monocryl in an interrupted subcuticular fashion. Liquid glue was applied to the skin after cleansing the skin with normal saline and dilute hydrogen peroxide. At the end of the procedure, needle, sponge, and instrument count had been verified correct by surgical garment assembly supervisor. The patient was taken to the postanesthesia care unit in stable condition. Plan - Discharge Summary Discharge Rx Participant: Yes New Discharge Prescriptions: New Omeprazole [PriLOSEC] 40 mg PO DAILY #14 cap Acetaminophen Tab [Tylenol Tab] 1,000 mg PO Q6HR PRN #30 tablet PRN Reason: Pain Simethicone [Gas-X] 125 mg PO AC-TID PRN #20 capsule PRN Reason: Pain Continue Levothyroxine Sodium [Synthroid] 25 mcg PO DAILY Albuterol Inhaler [Ventolin Hfa Inhaler] 2 puff INHALATION RT-QID PRN PRN Reason: Shortness Of Breath Discontinued Ibuprofen [Motrin] 800 mg PO Q6H PRN PRN Reason: Pain Discharge Medication List Albuterol Inhaler [Ventolin Hfa Inhaler] 2 puff INHALATION RT-QID PRN 08/31/21 [History] Levothyroxine Sodium [Synthroid] 25 mcg PO DAILY 08/31/21 [History] Acetaminophen Tab [Tylenol Tab] 1,000 mg PO Q6HR PRN #30 tablet 09/02/21 [Rx] Omeprazole [PriLOSEC] 40 mg PO DAILY #14 cap 09/02/21 [Rx] Simethicone [Gas-X] 125 mg PO AC-TID PRN #20 capsule 09/02/21 [Rx] Follow up Appointment(s)/Referral(s): Lainey Villafana MD [STAFF PHYSICIAN] - 09/06/21 (Telehealth available) Patient Instructions/Handouts: Endometriosis (GEN), Abdominal Binder (DC), Ventral Hernia Repair (GEN), Lysis of Abdominal Adhesions (DC) Activity/Diet/Wound Care/Special Instructions: Using antibacterial soap such as Hibiclens. No lifting over 4 pounds 4 weeks, September shower. No bathtub soaks for 2 weeks, September 16 Wear abdominal binder daily for comfort except for showering. Use ice along incisions for today to prevent swelling. Take tylenol, aleve/ibuprofen, simethicone scheduled for 3 days for best pain relief Discharge Disposition: HOME SELF-CARE
[2021-09-02 17:07] VITALS: RESP 15
[2021-09-02 17:49] VITALS: BP 110/70; PULSE 68
== END 2021-09-02 17:44 | disposition home or self-care (01) ==
LOC: OR 11:32
PROVIDERS: ATTEND Surgery Plastic and Reconstructive Surgery
DX: K66.0 Peritoneal adhesions (postprocedural) (postinfection) (principal); E03.9 Hypothyroidism, unspecified; F32.A Depression, unspecified; J45.909 Unspecified asthma, uncomplicated; K43.0 Incisional hernia with obstruction, without gangrene
CPT/HCPCS: 49655; 49329; 58578; 81025; 64999; 80053; 85025; J2250; J3370; J1100; J2710; J2405; J2001; J3010; J2795; J1885; J0330; J2704; J1644

== ENCOUNTER → 2021-10-26 | Outpatient (CLI) | payer OTHER ==
[2021-10-26 17:16] LABS: T4, Free (Free Thyroxine) 1.28 ng/dL (0.800-1.800)
== END | disposition home or self-care (01) ==
LOC: LABWHC1 09:44
PROVIDERS: ATTEND Internal Medicine
DX: E03.9 Hypothyroidism, unspecified (principal)
CPT/HCPCS: 36415; 84439; 84443

== ENCOUNTER → 2021-11-15 | Outpatient (CLI) | payer OTHER ==
--- NOTE | 2021-11-15 10:48 | XR ---
EXAMINATION TYPE: XR KUB DATE OF EXAM: 11/15/2021 COMPARISON: NONE HISTORY: Pain TECHNIQUE: One view abdominal series FINDINGS: The osseous structures are intact. The bowel gas pattern is nonspecific. Retained fecal debris throu ghout the colon. There is a tiny calcification in the pelvis which is stable. Within the course of th e left ureter measuring a diameter of 2.5 mm. Previous surgery in the pelvis noted. Curvature of the spine may be positional.. IMPRESSION: 1. Stable left hemipelvic calcification could be in the course of the left ureter, correlate clinical ly. 2. Correlate for constipation..
== END | disposition home or self-care (01) ==
LOC: RADXRMAIN 09:53
PROVIDERS: ATTEND Family Medicine
DX: R10.9 Unspecified abdominal pain (principal)
CPT/HCPCS: 74018

== ENCOUNTER 2021-12-28 03:13 | Emergency (ER) | payer OTHER ==
[2021-12-28 04:48] VITALS: TEMP 98.9
[2021-12-28] MEDS ORDERED: ONDANSETRON ODT 4 MG TAB PO STA (04:57)
[2021-12-28 05:35] LABS: Basophils # (A) 0.1 k/uL (0-0.2); Basophils % (A) 1 %; Eosinophils # (A) 0.2 k/uL (0-0.7); Eosinophils % (A) 2 %; HCT 42.2 % (34.0-46.0); HGB 13.9 gm/dL (11.4-16.0); Lymphocytes # (A) 2.4 k/uL (1.0-4.8); Lymphocytes % (A) 26 %; MCH 30.6 pg (25.0-35.0); MCHC 32.9 g/dL (31.0-37.0); MCV 92.8 fL (80.0-100.0); Mean Platelet Volume 8.2; Monocytes # (A) 0.5 k/uL (0-1.0); Monocytes % (A) 5 %; Neutrophils # (A) 5.7 k/uL (1.3-7.7); Neutrophils % (A) 64 %; Platelet Count 239 k/uL (150-450); RBC 4.55 m/uL (3.80-5.40)
[2021-12-28 05:44] LABS: ALT 12 U/L (4-34); AST 19 U/L (14-36); African American GFR (CKD) >90 (>60 ml/min/1.73 sqM); Albumin 4.4 g/dL (3.5-5.0); Alkaline Phosphatase 59 U/L (38-126); Amylase 67 U/L (30-110); Anion Gap 7 mmol/L; Blood Urea Nitrogen 9 mg/dL (7-17); Calcium 9.2 mg/dL (8.4-10.2); Carbon Dioxide 28 mmol/L (22-30); Chloride 103 mmol/L (98-107); Glucose 78 mg/dL (74-99); Lipase 38 U/L (23-300); Non-African American GFR(CKD) 89 (>60 ml/min/1.73 sqM); Potassium 3.9 mmol/L (3.5-5.1); Sodium 138 mmol/L (137-145); Total Bilirubin 0.7 mg/dL (0.2-1.3); Total Protein 6.9 g/dL (6.3-8.2)
[2021-12-28 05:47] LABS: Amorphous Sediment,Urine Rare /hpf; Appearance,Urine Cloudy (Clear); Bacteria,Urine Occasional /hpf; Bilirubin,Urine Negative (Negative); Blood,Urine Negative (Negative); Color,Urine Light Yellow; Glucose,Urine (UA) Negative (Negative); Ketones,Urine Negative (Negative); Leukocyte Esterase,Urine Negative (Negative); Mucus,Urine Occasional /hpf; Nitrite,Urine Negative (Negative); Protein,Urine Negative (Negative); RBC,Urine 1 /hpf (0-5); Specific Gravity,Urine 1.007 (1.001-1.035); Squamous Epithelial Cell,Urine 24 /hpf (0-4); Urobilinogen,Urine <2.0 mg/dL (<2.0); WBC,Urine 1 /hpf (0-5)
--- NOTE | 2021-12-28 06:59 | CT ---
EXAM: CT Abdomen and Pelvis Without Intravenous Contrast CLINICAL HISTORY: abdominal pain, hernia hx TECHNIQUE: Axial computed tomography images of the abdomen and pelvis without intravenous contrast. CTDI is 6.7 mGy and DLP is 368.2 mGy-cm. This CT exam was performed using one or more of the following dose reduction techniques: automated exposure control, adjustment of the mA and/or kV according to patient size, and/or use of iterative reconstruction technique. COMPARISON: CT of the abdomen/pelvis dated 07/22/2021. FINDINGS: Lung bases: Unremarkable. No mass. No consolidation. ABDOMEN: Liver: Unremarkable. Gallbladder and bile ducts: Unremarkable. No calcified stones. No ductal dilation. Pancreas: Unremarkable. No ductal dilation. Spleen: A few subcentimeter calcified granulomas are seen scattered throughout the spleen. Adrenals: Unremarkable. No mass. Kidneys and ureters: Unremarkable. No obstructing stones. No hydronephrosis. Stomach and bowel: Mild colonic diverticulosis. No obstruction. No mucosal thickening. PELVIS: Appendix: Status post appendectomy. Bladder: Underdistention and/or wall thickening of the urinary bladder suggesting cystitis. No stones. Reproductive: See below. ABDOMEN and PELVIS: Intraperitoneal space: A 2.5 cm left ovarian cyst is noted, new since prior study. Mild pelvic free fluid, likely physiologic. No free air. Bones/joints: No acute fracture. No dislocation. Soft tissues: Unremarkable. Vasculature: Unremarkable. No abdominal aortic aneurysm. Lymph nodes: Unremarkable. No enlarged lymph nodes. IMPRESSION: 1. Status post appendectomy. 2. A 2.5 cm left ovarian cyst, new since prior study. Mild pelvic free fluid, likely physiologic. Pelvic ultrasound is recommended for further evaluation. 3. Underdistention and/or wall thickening of the urinary bladder suggesting cystitis. Correlate with urinalysis. 4. Mild colonic diverticulosis.
[2021-12-28] MEDS ORDERED: MAG HYDROX/AL HYDROX/SIMETH 30 ML, HYOSCYAMINE ELIXIR 10 ML, LIDOCAINE VISCOUS 2% 10 ML PO STA ×3 (09:41)
--- NOTE | 2021-12-28 09:52 | ED ---
General Adult HPI - General Chief complaint: Abdominal Pain Stated complaint: Abd Pain Time Seen by Provider: 12/28/21 09:40 Source: patient, RN notes reviewed, old records reviewed Mode of arrival: ambulatory - History of Present Illness Initial comments: Patient presents to the emergency room, toy 4 with complaints of epigastric abdominal pain with nausea. Patient states it feels similar to when she had hernia repair surgery. She denies any fevers, no vomiting. She does vape. She has a history of tubal ligation, and appendectomy. Last menstrual period 2 weeks ago. -: days(s) (1) Location: abdomen (epigastric) Radiation: non-radiation Severity scale (1-10): 8 Consistency: constant Improves with: none Worsens with: none Associated Symptoms: nausea/vomiting Treatments Prior to Arrival: none - Related Data Home Medications Medication Instructions Recorded Confirmed Albuterol Inhaler [Ventolin Hfa 2 puff INHALATION RT-QID PRN 08/31/21 08/31/21 Inhaler] Levothyroxine Sodium [Synthroid] 25 mcg PO DAILY 08/31/21 08/31/21 Previous Rx's Medication Instructions Recorded Acetaminophen Tab [Tylenol Tab] 1,000 mg PO Q6HR PRN #30 tablet 09/02/21 Omeprazole [PriLOSEC] 40 mg PO DAILY #14 cap 09/02/21 Simethicone [Gas-X] 125 mg PO AC-TID PRN #20 capsule 09/02/21 Famotidine [Pepcid] 20 mg PO BID #28 tablet 12/28/21 Allergies Allergy/AdvReac Type Severity Reaction Status Date / Time aspirin Allergy Anaphylaxis Verified 12/28/21 04:47 Penicillins Allergy Anaphylaxis Verified 12/28/21 04:47 Review of Systems ROS Statement: Those systems with pertinent positive or pertinent negative responses have been documented in the HPI. ROS Other: All systems not noted in ROS Statement are negative. Past Medical History Past Medical History: Asthma, Thyroid Disorder Additional Past Medical History / Comment(s): back pain; Ovarian Cyst; Endometriosis History of Any Multi-Drug Resistant Organisms: None Reported Past Surgical History: Hernia Repair Additional Past Surgical History / Comment(s): thyroid, laproscopic exploratory for endometriosis Past Anesthesia/Blood Transfusion Reactions: Family History of Problems w/ Anesthesia, Motion Sickness Additional Past Anesthesia/Blood Transfusion Reaction / Comment(s): mother hx of ponv, and agitation with anesthesia Past Psychological History: Depression Smoking Status: Never smoker Past Alcohol Use History: None Reported Past Drug Use History: None Reported - Past Family History Mother Family Medical History: No Reported History Course Vital Signs 12/28/21 12/28/21 04:42 10:26 Temperature 98.9 F Pulse Rate 65 68 Respiratory 19 18 Rate Blood Pressure 114/74 121/84 O2 Sat by Pulse 100 96 Oximetry Medical Decision Making - Medical Decision Making CT the abdomen was performed showing appendectomy. Patient has a 2.5 cm left ovarian cyst which she states she is aware of. Labs are unremarkable with no leukocytosis. Urinalysis negative for infection or . She denies any vaginal bleeding or dysuria. No complaints of rectal bleeding. She denies any fevers. She describes the pain as epigastric in nature causing nausea. She did get relief with Zofran. She has a surgical history of appendectomy and hernia repair. On exam abdomen is soft and minimally tender in the epigastric area. She was given a GI cocktail. This is likely acid reflux. She was given a prescription for Pepcid and referred to her primary care doctor Dr. Kay. She is agreeable to being discharged home and following up. Case discussed with Dr. Washburn. - Lab Data Result diagrams: 12/28/21 05:17 12/28/21 05:17 Lab Results 12/28/21 12/28/21 12/28/21 Range/Units 05:17 05:17 05:17 WBC 9.0 (3.8-10.6) k/uL RBC 4.55 (3.80-5.40) m/uL Hgb 13.9 (11.4-16.0) gm/dL Hct 42.2 (34.0-46.0) % MCV 92.8 (80.0-100.0) fL MCH 30.6 (25.0-35.0) pg MCHC 32.9 (31.0-37.0) g/dL RDW 12.0 (11.5-15.5) % Plt Count 239 (150-450) k/uL MPV 8.2 Neutrophils % 64 % Lymphocytes % 26 % Monocytes % 5 % Eosinophils % 2 % Basophils % 1 % Neutrophils # 5.7 (1.3-7.7) k/uL Lymphocytes # 2.4 (1.0-4.8) k/uL Monocytes # 0.5 (0-1.0) k/uL Eosinophils # 0.2 (0-0.7) k/uL Basophils # 0.1 (0-0.2) k/uL Sodium (137-145) mmol/L Potassium (3.5-5.1) mmol/L Chloride (98-107) mmol/L Carbon Dioxide (22-30) mmol/L Anion Gap mmol/L BUN (7-17) mg/dL Creatinine (0.52-1.04) mg/dL Est GFR (CKD-EPI)AfAm (>60 ml/min/1.73 sqM) Est GFR (CKD-EPI)NonAf (>60 ml/min/1.73 sqM) Glucose (74-99) mg/dL Calcium (8.4-10.2) mg/dL Total Bilirubin (0.2-1.3) mg/dL AST (14-36) U/L ALT (4-34) U/L Alkaline Phosphatase (38-126) U/L Total Protein (6.3-8.2) g/dL Albumin (3.5-5.0) g/dL Amylase (30-110) U/L Lipase (23-300) U/L Urine Color Light Yellow Urine Appearance Cloudy H (Clear) Urine pH 6.0 (5.0-8.0) Ur Specific [place] 1.007 (1.001-1.035) Urine Protein Negative (Negative) Urine Glucose (UA) Negative (Negative) Urine Ketones Negative (Negative) Urine Blood Negative (Negative) Urine Nitrite Negative (Negative) Urine Bilirubin Negative (Negative) Urine Urobilinogen <2.0 (<2.0) mg/dL Ur Leukocyte Esterase Negative (Negative) Urine RBC 1 (0-5) /hpf Urine WBC 1 (0-5) /hpf Ur Squamous Epith Cells 24 H (0-4) /hpf Amorphous Sediment Rare H (None) /hpf Urine Bacteria Occasional H (None) /hpf Urine Mucus Occasional H (None) /hpf Urine HCG, Qual Not Detected (Not Detectd) 12/28/21 Range/Units 05:17 WBC (3.8-10.6) k/uL RBC (3.80-5.40) m/uL Hgb (11.4-16.0) gm/dL Hct (34.0-46.0) % MCV (80.0-100.0) fL MCH (25.0-35.0) pg MCHC (31.0-37.0) g/dL RDW (11.5-15.5) % Plt Count (150-450) k/uL MPV Neutrophils % % Lymphocytes % % Monocytes % % Eosinophils % % Basophils % % Neutrophils # (1.3-7.7) k/uL Lymphocytes # (1.0-4.8) k/uL Monocytes # (0-1.0) k/uL Eosinophils # (0-0.7) k/uL Basophils # (0-0.2) k/uL Sodium 138 (137-145) mmol/L Potassium 3.9 (3.5-5.1) mmol/L Chloride 103 (98-107) mmol/L Carbon Dioxide 28 (22-30) mmol/L Anion Gap 7 mmol/L BUN 9 (7-17) mg/dL Creatinine 0.87 (0.52-1.04) mg/dL Est GFR (CKD-EPI)AfAm >90 (>60 ml/min/1.73 sqM) Est GFR (CKD-EPI)NonAf 89 (>60 ml/min/1.73 sqM) Glucose 78 (74-99) mg/dL Calcium 9.2 (8.4-10.2) mg/dL Total Bilirubin 0.7 (0.2-1.3) mg/dL AST 19 (14-36) U/L ALT 12 (4-34) U/L Alkaline Phosphatase 59 (38-126) U/L Total Protein 6.9 (6.3-8.2) g/dL Albumin 4.4 (3.5-5.0) g/dL Amylase 67 (30-110) U/L Lipase 38 (23-300) U/L Urine Color Urine Appearance (Clear) Urine pH (5.0-8.0) Ur Specific [place] (1.001-1.035) Urine Protein (Negative) Urine Glucose (UA) (Negative) Urine Ketones (Negative) Urine Blood (Negative) Urine Nitrite (Negative) Urine Bilirubin (Negative) Urine Urobilinogen (<2.0) mg/dL Ur Leukocyte Esterase (Negative) Urine RBC (0-5) /hpf Urine WBC (0-5) /hpf Ur Squamous Epith Cells (0-4) /hpf Amorphous Sediment (None) /hpf Urine Bacteria (None) /hpf Urine Mucus (None) /hpf Urine HCG, Qual (Not Detectd) Disposition Clinical Impression: Gastritis Disposition: HOME SELF-CARE Condition: Good Instructions (If sedation given, give patient instructions): Gastritis (ED), Abdominal Pain (ED) Additional Instructions: Take Pepcid twice a day to improve your symptoms of gastritis. Follow-up with her primary care doctor next week. Return to the emergency room with a new or concerning symptoms including increased abdominal pain, fevers or persistent nausea vomiting. Prescriptions: Famotidine [Pepcid] 20 mg PO BID #28 tablet Is patient prescribed a controlled substance at d/c from ED?: No Referrals: Vince Kay DO [Primary Care Provider] - 1-2 days Time of Disposition: 09:59
[2021-12-28] MEDS ORDERED: ONDANSETRON 4 MG ODT STARTER PACK 2 TAB BTL PO STA (09:59)
[2021-12-28 10:27] VITALS: BP 121/84; PULSE 68; RESP 18
== END 2021-12-28 10:27 | disposition home or self-care (01) ==
LOC: EC 03:13
DX: K29.70 Gastritis, unspecified, without bleeding (principal); J45.909 Unspecified asthma, uncomplicated; E07.9 Disorder of thyroid, unspecified; Z88.6 Allergy status to analgesic agent; Z88.0 Allergy status to penicillin; Z79.890 Hormone replacement therapy
CPT/HCPCS: 36415; 80053; 82150; 83690; 85025; 81001; 81025; 74176; 99284; S0119

== ENCOUNTER 2022-02-15 08:15 | Day surgery (SDC) | payer OTHER ==
[2022-02-13 16:16] VITALS: BMI 21.6
--- NOTE | 2022-02-15 06:23 | P.GSHP ---
History of Present Illness H&P Date: 02/15/22 CHIEF COMPLAINT: GERD and change in bowel habits HISTORY OF PRESENT ILLNESS: The patient is a 32-year-old female who presents with gastroesophageal reflux disease and change in bowel habits. Upper and lower endoscopy were offered for further evaluation and management. PAST MEDICAL HISTORY: Please see list. PAST SURGICAL HISTORY: Please see list. MEDICATIONS: Please see list. ALLERGIES: Please see list. SOCIAL HISTORY: No illicit drug use FAMILY HISTORY: No reports of Crohn disease or ulcerative colitis. REVIEW OF ORGAN SYSTEMS: CONSTITUTIONAL: No reports of fevers or chills. GI: Denies any blood in stools or constipation. PHYSICAL EXAM: VITAL SIGNS: Stable GENERAL: Well-developed pleasant in no acute distress. HEENT: No scleral icterus. Extraocular movements grossly intact. Moist buccal mucosa. NECK: Supple without lymphadenopathy. CHEST: Unlabored respirations. Equal bilateral excursions. CARDIOVASCULAR: Regular rate and rhythm. Distal 2+ pulses. ABDOMEN: Soft, nondistended. MUSCULOSKELETAL: No clubbing, cyanosis, or edema. ASSESSMENT: 1. Gastroesophageal reflux disease 2. Change in bowel habits PLAN: 1. Recommend proceeding with an upper and lower endoscopy Past Medical History Past Medical History: Asthma, GERD/Reflux, Thyroid Disorder Additional Past Medical History / Comment(s): ABD PAIN, BLOOD IN STOOL History of Any Multi-Drug Resistant Organisms: None Reported Past Surgical History: Section, Hernia Repair Additional Past Surgical History / Comment(s): thyroid, laproscopic exploratory for endometriosis, LYSIS OF ADHESIONS Past Anesthesia/Blood Transfusion Reactions: Family History of Problems w/ Anesthesia, Motion Sickness Additional Past Anesthesia/Blood Transfusion Reaction / Comment(s): mother hx of ponv, and agitation with anesthesia Smoking Status: Current every day smoker, Vaper - Past Family History Mother Family Medical History: Cancer Medications and Allergies Home Medications Medication Instructions Recorded Confirmed Type Albuterol Inhaler [Ventolin Hfa 2 puff INHALATION RT-QID PRN 08/31/21 02/13/22 History Inhaler] Famotidine 40 mg PO BID 02/13/22 02/13/22 History Levothyroxine Sodium [Synthroid] 50 mcg PO DAILY 02/13/22 02/13/22 History Allergies Allergy/AdvReac Type Severity Reaction Status Date / Time aspirin Allergy Anaphylaxis Verified 02/13/22 16:07 Penicillins Allergy Anaphylaxis Verified 02/13/22 16:07
[2022-02-15 09:08] VITALS: RESP 16; TEMP 96.5
[2022-02-15] MEDS ORDERED: LACTATED RINGERS 1,000 ML IV ONE ×2 (09:09→11:00)
[2022-02-15] MEDS ORDERED: LIDOCAINE 2% INJ 20 MG/ML (2 ML VIAL) ONE (10:07)
[2022-02-15] MEDS ORDERED: MIDAZOLAM 2 MG/2 ML VIAL ONE (10:07)
[2022-02-15] MEDS ORDERED: PROPOFOL 10 MG/ML 20 ML VIAL IV ONE (10:07)
[2022-02-15] MEDS ORDERED: fentaNYL (PF) 50 MCG/ML 2 ML AMP ONE (10:07)
--- NOTE | 2022-02-15 10:18 | P.PCN ---
Date of Procedure: 02/15/22 Description of Procedure: PREOPERATIVE DIAGNOSIS: Gastroesophageal reflux disease. Epigastric abdominal pain POSTOPERATIVE DIAGNOSIS: Gastroesophageal reflux disease with erosive esophagitis Gastritis. Diaphragmatic hiatal hernia OPERATION: Esophagogastroduodenoscopy with biopsies along antrum and duodenum SURGEON: Lainey Villafana MD ANESTHESIA: MAC. INDICATIONS: The patient is a 32-year-old female who presents with reflux disease and epigastric abdominal pain. Benefits and risks of the procedure were described. Informed consent was obtained. DESCRIPTION: The patient was brought into the endoscopy suite and laid in the left lateral decubitus position. An Olympus gastroscope was passed along the posterior oropharynx down to the distal esophagus where the squamocolumnar junction was encountered at 42 cm from the incisors. The stomach was entered and no bile reflux was found. Additional findings are listed below. Biopsies with cold forceps were obtained of the antrum. The first through third portion of the duodenum was examined. Retroflexion of the scope confirmed Hill grade 1 lower esophageal valve. The squamocolumnar junction demonstrated LA grade B erosive esophagitis. The stomach was desufflated. The patient tolerated the procedure well. FINDINGS: Squamocolumnar junction 42 cm from the incisors. Diaphragmatic hiatus at 42 cm. Hill grade 1 lower esophageal valve. LA grade B erosive esophagitis. Biopsies obtained of duodenum for celiac disease Chronic gastritis RECOMMENDATIONS: Upper endoscopy as needed.
--- NOTE | 2022-02-15 10:43 | P.PCN ---
Date of Procedure: 02/15/22 Description of Procedure: PREOPERATIVE DIAGNOSIS: Rectal bleeding Family history of colon cancer Diverticulosis Colitis POSTOPERATIVE DIAGNOSIS: Rectal bleeding Family history of colon cancer Diverticulosis Colitis OPERATION: Colonoscopy to the cecum, ileocecal valve and appendiceal orifice. Colonoscopy with random cold forceps biopsies SURGEON: aLiney Villafana MD. ANESTHESIA: MAC. INDICATIONS: The patient is a 32-year-old female who presents with change in bowel habits and rectal bleeding. Benefits and risks were described and informed consent was obtained. DESCRIPTION OF PROCEDURE: The patient had undergone Miralax prep. The patient had been brought into the operating room and laid in the left lateral decubitus position. After adequate intravenous sedation, the rectum was examined with 2% lidocaine jelly. No external hemorrhoids were encountered. The rectal tone was within normal limits. No lesions were palpated in the rectal vault. An Olympus colonoscope was advanced until the cecum, ileocecal valve and appendiceal orifice were clearly viewed. The prep was good. No large scattered diverticulosis was encountered. No large colonic polyps were found. Random biopsies were obtained for colitis, microscopic. Retroflexion of the scope demonstrated grade 1 internal hemorrhoids without active bleeding or inflammation. The colon was desufflated. The patient had tolerated the procedure well. Withdrawal time was over 6 minutes. FINDINGS: Aronchick preparation quality scale 2 (1-5) Internal hemorrhoids, grade 1 No external prolapsed hemorrhoids. No arteriovenous malformations. No adenomatous polyps. Random biopsies obtained for colitis RECOMMENDATIONS: Lower endoscopy in 5 years, 2026 due to familial risk Plan - Discharge Summary Discharge Rx Participant: No New Discharge Prescriptions: New Omeprazole [PriLOSEC] 40 mg PO DAILY #14 cap Continue Albuterol Inhaler [Ventolin Hfa Inhaler] 2 puff INHALATION RT-QID PRN PRN Reason: Shortness Of Breath Levothyroxine Sodium [Synthroid] 50 mcg PO DAILY Discontinued Famotidine 40 mg PO BID Discharge Medication List Albuterol Inhaler [Ventolin Hfa Inhaler] 2 puff INHALATION RT-QID PRN 08/31/21 [History] Levothyroxine Sodium [Synthroid] 50 mcg PO DAILY 02/13/22 [History] Omeprazole [PriLOSEC] 40 mg PO DAILY #14 cap 02/15/22 [Rx] Follow up Appointment(s)/Referral(s): Lainey Villafana MD [STAFF PHYSICIAN] - 03/07/22 Patient Instructions/Handouts: *[facility]gery [facility] - (Anesthesia) Endoscopy Discharge Instructions, Moderate Sedation (DC), Upper Endoscopy (DC), Colonoscopy (DC) Activity/Diet/Wound Care/Special Instructions: Repeat colonoscopy in 5 years, 2026 Discharge Disposition: HOME SELF-CARE
[2022-02-15 11:32] VITALS: BP 100/72; PULSE 67
== END 2022-02-15 12:04 | disposition home or self-care (01) ==
LOC: ORWHC2ENDO 08:15
PROVIDERS: ATTEND Surgery Plastic and Reconstructive Surgery
DX: K21.00 Gastro-esophageal reflux disease with esophagitis, without bleeding (principal); K57.30 Diverticulosis of large intestine without perforation or abscess without bleeding; K64.0 First degree hemorrhoids; R59.0 Localized enlarged lymph nodes; K31.A19 Gastric intestinal metaplasia without dysplasia, unspecified site; K29.50 Unspecified chronic gastritis without bleeding; J45.909 Unspecified asthma, uncomplicated; E07.9 Disorder of thyroid, unspecified; Z98.890 Other specified postprocedural states; F17.290 Nicotine dependence, other tobacco product, uncomplicated; Z80.9 Family history of malignant neoplasm, unspecified; Z80.0 Family history of malignant neoplasm of digestive organs; K52.9 Noninfective gastroenteritis and colitis, unspecified; Z79.890 Hormone replacement therapy; Z79.899 Other long term (current) drug therapy; Z88.6 Allergy status to analgesic agent; Z88.0 Allergy status to penicillin
CPT/HCPCS: 81025; 88305; 45380; 43239; J2250; J3010; J2704; J2001

== ENCOUNTER → 2022-02-21 | Outpatient (CLI) | payer OTHER ==
--- NOTE | 2022-02-21 09:14 | US ---
EXAMINATION TYPE: US transvaginal DATE OF EXAM: 02/21/2022 COMPARISON: NONE CLINICAL HISTORY: R10.12 LUQ abd pain. TECHNIQUE: Transvaginal (TV). Date of LMP: 01-17-22 EXAM MEASUREMENTS: Uterus: 8.2 x 3.4 x 4.7 cm Endometrial Stripe: 0.2 cm Right Ovary: 3.1 x 1.9 x 2.0 cm Left Ovary: 2.4 x 1.5 x 1.5 cm 1. Uterus: Anteverted wnl 2. Endometrium: wnl 3. Right Ovary: wnl 4. Left Ovary: wnl Spectral, color and waveform doppler imaging shows good arterial and venous flow within the ovaries ; there is no evidence for ovarian torsion. 5. Bilateral Adnexa: wnl 6. Posterior cul-de-sac: wnl IMPRESSION: Examination is within normal limits.
--- NOTE | 2022-02-21 09:20 | US ---
EXAMINATION TYPE: US abdomen complete DATE OF EXAM: 02/21/2022 COMPARISON: NONE CLINICAL HISTORY: R10.12 LUQ abd pain. TECHNIQUE: Multiple sonographic images of the abdomen are obtained. FINDINGS: F/U to CT EXAM MEASUREMENTS: Liver Length: 12.1 cm Gallbladder Wall: 0.2 cm CBD: 0.3 cm Spleen: 11.6 cm Right Kidney: 10.9 x 5.0 x 4.5 cm Left Kidney: 10.9 x 4.7 x 4.3 cm COLLECTIONS ASSISTANT NOTES: Pancreas: wnl Liver: wnl Gallbladder: wnl Evidence for sonographic Richmond's sign: No CBD: wnl Spleen: scattered echogenic foci Right Kidney: No hydronephrosis or masses seen Left Kidney: No hydronephrosis or masses seen Upper IVC: wnl Abd Aorta: wnl as seen bifurcation obscured by overlying bowel gas The liver is homogenous. The intrahepatic portion of the IVC and proximal abdominal aorta are within normal limits. There is no evidence of cholelithiasis. Common bile duct is unremarkable. The visu alized portions of the pancreas are homogenous. Kidneys are symmetric and free of hydronephrosis. N o renal lesions are seen. IMPRESSION: No significant abnormality appreciated.
== END | disposition home or self-care (01) ==
LOC: RADUSWWP 07:34
PROVIDERS: ATTEND Family Medicine
DX: R10.12 Left upper quadrant pain (principal)
CPT/HCPCS: 76700; 76830

== ENCOUNTER → 2022-10-19 | Outpatient (CLI) | payer OTHER ==
--- NOTE | 2022-10-19 10:41 | XR ---
EXAMINATION TYPE: XR knee 4V RT DATE OF EXAM: 10/19/2022 CLINICAL HISTORY: pain TECHNIQUE: Three views of the right knee are obtained. Patellar sunrise view also submitted. COMPARISON: None. FINDINGS: There is no acute fracture/dislocation. The tri-compartment joint spaces appear within no rmal limits. The overlying soft tissue appears unremarkable. IMPRESSION: There is no acute fracture or dislocation.ICD 10 NO FRACTURE, INITIAL EVALUATION
[2022-10-19 15:38] LABS: Basophils # (A) 0.06 X 10*3/uL (0.00-0.10); Basophils % (A) 0.8 %; Eosinophils # (A) 0.31 X 10*3/uL (0.04-0.35); Eosinophils % (A) 4.3 %; HCT 42.7 % (37.2-46.3); HGB 14.2 g/dL (12.0-15.0); Immature Grans, Automated 0.1 %; Lymphocytes # (A) 1.54 X 10*3/uL (0.90-5.00); Lymphocytes % (A) 21.3 %; MCH 29.9 pg (27.0-32.0); MCHC 33.3 g/dL (32.0-37.0); MCV 89.9 fL (80.0-97.0); Mean Platelet Volume 10.9 fL (9.5-12.2); Monocytes # (A) 0.45 X 10*3/uL (0.20-1.00); Monocytes % (A) 6.2 %; NRBC Per 100 WBC 0 /100 WBCS (0.0-0.0); Neutrophils # (A) 4.85 X 10*3/uL (1.80-7.70); Neutrophils % (A) 67.3 %; Platelet Count 282 X 10*3/uL (140-440); RBC 4.75 X 10*6/uL (4.10-5.20); RDW 12.4 % (11.5-14.5); WBC 7.22 X 10*3/uL (4.50-10.00)
[2022-10-19 16:17] LABS: ALT 13 U/L (8-44); AST 13 U/L (13-35); Albumin 4.7 g/dL (3.8-4.9); Albumin/Globulin Ratio 1.95 (1.60-3.17); Alkaline Phosphatase 78 U/L (41-126); BUN/Creat Ratio 11.58 Ratio (12.00-20.00); Blood Urea Nitrogen 9.2 mg/dL (9.0-27.0); Calcium 9.9 mg/dL (8.7-10.3); Carbon Dioxide 25.1 mmol/L (20.0-27.5); Chloride 104 mmol/L (96-109); Chol/HDL Ratio 2.79 Ratio; Globulin 2.4 g/dL (1.6-3.3); Glucose 94 mg/dL (70-110); LDL Cholesterol,Calculated 106.9 mg/dL (0.0-131.0); Non-African American GFR(CKD) 98.4 (60.0-200.0); Potassium 4.4 mmol/L (3.5-5.5); Sodium 140 mmol/L (135-145); Total Protein 7.1 g/dL (6.2-8.2)
== END | disposition home or self-care (01) ==
LOC: RADXRMAIN 08:15
PROVIDERS: ATTEND Family Medicine
DX: Z13.220 Encounter for screening for lipoid disorders (principal); M25.561 Pain in right knee; R59.0 Localized enlarged lymph nodes; E03.9 Hypothyroidism, unspecified
CPT/HCPCS: 80053; 80061; 84439; 84443; 84481; 85025

== ENCOUNTER → 2022-11-20 | Outpatient (CLI) | payer OTHER ==
--- NOTE | 2022-11-20 14:57 | US ---
EXAMINATION TYPE: US thyroid st tissue head/neck DATE OF EXAM: 11/20/2022 COMPARISON: NONE CLINICAL INDICATION: Female, 32 years old with history of R59.0 LOCALIZED ENLARGED LYMPH NODES; Righ t thyroid removed. GLAND SIZE: Right Lobe: Surgically absent cm Left Lobe: 5.2 x 1.3 x 1.9 cm Overall Parenchyma: homogeneous Isthmus Thickness: .3 cm NODULES RIGHT: # of nodules measured on right: 0 LEFT: # of nodules measured on left: 1 1. .6 X .5 x .6 cm, upper lateral, mixed cystic and solid, hypoechoic nodule, which is wider than t all, with smooth margins, without echogenic foci. Prior size: .5 x .4 x .4 cm ISTHMUS: # of nodules measured in the isthmus: 0 Bilateral neck scanned, no evidence of lymphadenopathy. IMPRESSION: Mildly suspicious subcentimeter nodule left lobe thyroid. 2017 ACR TI-RADS LEVEL: TR-RADS 3 - Mildly Suspicious: Follow if > 1.5 cm, FNA if > 2.5 cm *Highest TI-RADS level nodule reported
== END | disposition home or self-care (01) ==
LOC: RADUSWWP 08:20
PROVIDERS: ATTEND Family Medicine
DX: R59.0 Localized enlarged lymph nodes (principal)
CPT/HCPCS: 76536

== ENCOUNTER → 2023-12-05 | Outpatient (CLI) | payer OTHER ==
--- NOTE | 2023-12-05 11:44 | XR ---
EXAMINATION TYPE: XR thoracic spine 2V DATE OF EXAM: 12/05/2023 COMPARISON: NONE HISTORY: Pain TECHNIQUE: 3 views submitted FINDINGS: Alignment is anatomic. There is no compression deformities. Vertebral body height and disc interspa cecile are maintained. Slight curvature of the spine. IMPRESSION: 1. No acute abnormality. If there is concern for disc herniation consider follow-up MRI.
== END | disposition home or self-care (01) ==
LOC: LABWHC1 11:04
PROVIDERS: ATTEND Family Medicine
DX: M54.6 Pain in thoracic spine (principal)
CPT/HCPCS: 72070

== ENCOUNTER → 2023-12-18 | Outpatient (CLI) | payer OTHER ==
--- NOTE | 2023-12-20 09:17 | MM ---
Reason for Exam: Screening (asymptomatic). Patient History: Menarche at age 12. First Full-Term at age 21. Premenopausal. Mother had breast cancer, age 30. Tissue Density: The breasts are extremely dense, which lowers the sensitivity of mammography. Findings: Analyzed By CAD. There is no suspicious group of microcalcifications or new suspicious mass in either breast. Overall Assessment: Negative, BI-RAD 1 Management: Screening Mammogram of both breasts in 1 year. . Patient should continue monthly self-breast exams. A clinical breast exam by your physician is recommended on an annual basis. This exam should not preclude additional follow-up of suspicious palpable abnormalities. Note on Ines scores and lifetime risk: 1. A Ines score greater than 3% is considered moderate risk. If this is the case, consider specialist referral to assess eligibility for a risk reducing agent. 2. If overall lifetime risk for the development of breast cancer is 20% or higher, the patient may qualify for future screening with alternating mammogram and breast MRI. Electronically signed and approved by: Pedro Smith M.D. Radiologis
== END | disposition home or self-care (01) ==
LOC: RADMAMWWP 14:17
PROVIDERS: ATTEND Family Medicine
DX: Z12.31 Encounter for screening mammogram for malignant neoplasm of breast (principal); Z80.3 Family history of malignant neoplasm of breast
CPT/HCPCS: 77067

== ENCOUNTER → 2024-01-01 | Outpatient (CLI) | payer OTHER ==
--- NOTE | 2024-01-01 19:52 | US ---
EXAMINATION TYPE: US thyroid st tissue head/neck DATE OF EXAM: 01/01/2024 COMPARISON: 11/20/2022 CLINICAL INDICATION: Female, 33 years old with history of R59.0 LOCALIZED ENLARGED LYMPH NODES; Right thyroid removed due to goiter at age 13 per patient. Patient states her mother had thyroid cancer x 2. GLAND SIZE: Right Lobe: Surgically absent Left Lobe: 4.4 x 1.7 x 1.6 cm Overall Parenchyma: homogeneous Isthmus Thickness: 0.2 cm NODULES RIGHT: Surgically absent In area of thyroid fossa = 1.8 x 0.5 x 0.5 cm LEFT: # of nodules measured on left: 1 1. 0.5 X 0.5 x 0.4 cm, upper lateral, Prior size: 0.6 x 0.5 x 0.6 cm TIRADS Score: 3 TIRADS Category 3: Composition: Mixed cystic and solid (1 point). Echogenicity: Hypoechoic (2 points). Shape: Wider than tall (0 points). Margin: Smooth (0 points). Echogenic foci: None or large comet-tail artifacts (0 points) Recommendation: If >2.5cm: FNA; If >1.5cm: Follow up at 1,3,5 years ISTHMUS: # of nodules measured in the isthmus: 0 Bilateral neck scanned, no evidence of lymphadenopathy. IMPRESSION: Left thyroid nodule which meets criteria for follow-up. Not significantly changed in size possibly ev en smaller compared to prior given differences in measuring technique..
== END | disposition home or self-care (01) ==
LOC: RADUSWWP 16:20
PROVIDERS: ATTEND Family Medicine
DX: R59.0 Localized enlarged lymph nodes (principal); E04.1 Nontoxic single thyroid nodule; Z80.8 Family history of malignant neoplasm of other organs or systems
CPT/HCPCS: 76536

== ENCOUNTER → 2024-09-09 | Outpatient (CLI) | payer OTHER ==
--- NOTE | 2024-09-09 17:45 | MR ---
INDICATION: Patient age:Female; 34 years old; Reason for study: G43.009 Migraine without aura,not intractable; [facility]. COMPARISON: CT brain 05/10/2013. TECHNIQUE: Multi planar, multi sequence imaging was performed through the brain without the administr ation of intravenous contrast. FINDINGS: The rice-white junctions, ventricular system, basal cisterns appear unremarkable. Age-appropriate cer ebral parenchymal volume. Diffusion-weighted imaging shows no evidence of restricted diffusion to sug gest acute/subacute infarct. Intracranial arterial flow voids are maintained. Midline structures show no abnormality. No FLAIR signal abnormalities. The susceptibility weighted images do not reveal any evidence for micro-hemorrhage. The bone marrow signal is within normal limits. The paranasal sinuses and globes are unremarkable. IMPRESSION: No evidence of intracranial mass or acute/subacute infarct. [facility], , 09/09/2024 5:43 PM
== END | disposition home or self-care (01) ==
LOC: RADMRIMAIN 16:58
PROVIDERS: ATTEND Family Medicine
DX: G43.009 Migraine without aura, not intractable, without status migrainosus (principal)
CPT/HCPCS: 70551

== ENCOUNTER → 2024-11-19 | Outpatient (CLI) | payer OTHER ==
--- NOTE | 2024-11-19 18:22 | XR ---
EXAMINATION TYPE: XR ankle complete RT DATE OF EXAM: 11/19/2024 5:45 PM COMPARISON: None CLINICAL INDICATION: Female, 34 years old with history of M25.571 PAIN IN RIGHT ANKLE AND JOINTS OF R IGHT FO; [facility], pain TECHNIQUE: XR ankle complete RT; frontal, lateral and oblique projections. FINDINGS: There is no evidence of acute osseous pathology. No evidence of subluxation or dislocation. Kager's fat pad is intact. Soft tissues are within normal limits. No radiopaque foreign bodies are identified . IMPRESSION: No evidence of acute fracture. [facility], , 11/19/2024 6:20 PM
== END | disposition home or self-care (01) ==
LOC: RADXRMAIN 17:25
PROVIDERS: ATTEND Nurse Practitioner Family
DX: M25.571 Pain in right ankle and joints of right foot (principal)